=== PATIENT | female | born 1950 | race Caucasian/White ===

== ENCOUNTER 2019-06-30 11:56 | Outpatient (CLI) | payer MEDICARE, SELFPAY ==
--- NOTE | ~2019-06-30 | XR_ITS ---
XR lumbar spine 6V w bending 06/30/2019 12:31 Indication: Low back pain. No recent trauma. Procedure: 7 views of the lumbar spine including flexion/extension views Comparison: 02/13/2013 Findings: There is mild lumbar facet hypertrophy at L3-4 through L5-S1. There is grade 1 degenerative spondylolisthesis at L3-4. There is disc narrowing at all lumbar levels, most advanced at L4-5 and L 5-S1. No acute fracture or traumatic malalignment. There is atherosclerosis of the aorta. No signific ant alteration of alignment with flexion/extension. Mild levocurvature of the lumbar spine. Pedicles intact. There are cholecystectomy clips. Sacral foramen are symmetric. Impression: 1: Mild-moderate lumbar spondylosis with grade 1 degenerative spondylolisthesis at L3-4. Reviewed, dictated and finalized at location A. CIATE PROFESSOR OF MEDICINE Impression: 1: Mild-moderate lumbar spondylosis with grade 1 degenerative spondylolisthesis at L3-4.
--- NOTE | ~2019-06-30 | XR_ITS ---
XR sacroiliac joints min 3V 06/30/2019 12:31 Indication: Low back pain Procedure: 3 view sacroiliac joints Comparison: No prior studies for comparison. Findings: There are mild symmetric degenerative changes of the sacroiliac joints. No erosive changes. No evidence for ankylosis. Moderate lower lumbar spondylosis. Sacral foramen are symmetric. Impression: 1: Mild symmetric degenerative changes of the sacroiliac joints. Reviewed, dictated and finalized at location A. NEERING ILLUSTRATOR Impression: 1: Mild symmetric degenerative changes of the sacroiliac joints.
== END 2019-06-30 11:57 | disposition home or self-care (01) ==
LOC: ANHIMG 12:08
PROVIDERS: PCP Internal Medicine; Visit Provider Internal Medicine
DX: M47.816 Spondylosis without myelopathy or radiculopathy, lumbar region (principal); M47.818 Spondylosis without myelopathy or radiculopathy, sacral and sacrococcygeal region; M43.16 Spondylolisthesis, lumbar region; I11.9 Hypertensive heart disease without heart failure
CPT/HCPCS: 72114; 72202

== ENCOUNTER 2019-07-09 13:57 | Outpatient (CLI) | payer MEDICARE, SELFPAY ==
[2019-07-09 14:53] LABS: Hemoglobin A1C 5.5 % (<5.7)
[2019-07-09 14:57] LABS: Aspartate Amino Transferase 26 U/L (14-36); Blood Urea Nitrogen 15 mg/dL (7-17); Calcium 9.1 mg/dL (8.4-10.2); Carbon Dioxide 30 mmol/L (22-30); Chloride 102 mmol/L (98-107); Cholesterol 209 mg/dL (0-200); Estimated Glomerular Filt Rate > 60; Glucose 100 mg/dL (65-105); HDL Direct 47 mg/dL; Potassium 4.6 mmol/L (3.4-5.0); Sodium 139 mmol/L (137-145); Triglycerides 95 mg/dL (<150); Uric Acid 4.1 mg/dL (2.5-7.5)
[2019-07-09 15:09] LABS: LDL Cholesterol Direct 136 mg/dL
[2019-07-09 15:59] LABS: Free T4 Free Thyroxine 0.98 ng/mL (0.78-2.19); Vitamin D 25 Hydroxy 31.8 ng/mL
[2019-07-09 16:06] LABS: Folic Acid > 20.0 ng/mL (2.76->20)
== END 2019-07-09 13:58 | disposition home or self-care (01) ==
PROVIDERS: PCP Internal Medicine; Visit Provider Internal Medicine
DX: I11.9 Hypertensive heart disease without heart failure (principal); E55.9 Vitamin D deficiency, unspecified; R73.09 Other abnormal glucose; R53.83 Other fatigue
CPT/HCPCS: 36415; 80048; 80061; 82306; 82607; 82746; 83036; 84439; 84443; 84450; 84550

== ENCOUNTER 2019-09-19 15:31 | Outpatient (CLI) | payer MEDICARE, SELFPAY ==
--- NOTE | ~2019-09-19 | XR_ITS ---
XR knee RT 3V, XR patella RT 09/19/2019 16:01 Indication: Knee pain after fall Procedure: 3 views of the right knee and 2 views of the patella Comparison: No prior studies for comparison. Findings: No fracture, subluxation or dislocation. No significant joint effusion. No joint space narr owing. No focal soft tissue abnormality. No foreign bodies. Impression: 1: No acute bone or joint abnormality. Reviewed, dictated and finalized at location A. Impression: 1: No acute bone or joint abnormality. Impression: 1: No acute bone or joint abnormality.
== END 2019-09-19 15:32 | disposition home or self-care (01) ==
PROVIDERS: PCP Internal Medicine; Visit Provider Internal Medicine
DX: M25.569 Pain in unspecified knee (principal)
CPT/HCPCS: 73560; 73562

== ENCOUNTER 2019-10-19 11:05 | Outpatient (CLI) | payer MEDICARE, SELFPAY ==
--- NOTE | ~2019-10-19 | MR_ITS ---
EXAMINATION: MR knee RT wo con DATE: 10/19/2019 12:43 INDICATION: Generalized right knee pain post fall TECHNIQUE: Magnetic resonance imaging (MRI) of the right knee was performed without intravenous contr ast. Sequences included coronal PD-weighted FSE, coronal PD-weighted FS FSE, sagittal T2-weighted FS E, sagittal PD-weighted FS FSE and axial PD weighted fat saturated FSE. COMPARISON: None. FINDINGS: Medial compartment: Complex tear of the medial meniscus with radial tear plane extending through the free edge to the mid third of the posterior horn and with a horizontal longitudinal tear plane contacting the inferior ar ticular surface which extends medially into the posterior body of the medial meniscus. Shallow chondr al fissuring at the central aspect of the medial tibial plateau. Lateral compartment: Lateral meniscus is normal. Shallow chondral fissuring at the central aspect of the lateral tibial pl ateau. Patellofemoral compartment: Chondral fissure involving approximately 50% the cartilage thickness at the skull ridge and immediate ly adjacent portions of the medial and lateral patellar facets. Trochlear cartilage is normal. Ligaments and tendons: Anterior and posterior cruciate ligaments are normal. The medial collateral ligament and fibular leigha ateral ligament complex are normal. The extensor mechanism is normal. The visualized medial and later al hamstring tendons as well as the iliotibial band are normal. Fluid: Small right knee joint effusion at the suprapatellar pouch. No loose osteochondral bodies identified. Osseous/other: There is prominent marrow edema at the anterior aspect of the proximal tibia without evident fracture line consistent with bone contusion. No fracture or pathologic marrow replacing process. IMPRESSION: 1. Bone marrow edema at the anterior tibia without evident fracture line consistent with likely bone contusion. 2. Complex tear of the medial meniscus. 3. Mild tricompartmental osteoarthritis with regions of moderate grade chondromalacia at the patella and medial and lateral tibial plateaus. Reviewed, dictated and finalized at location A. IMPRESSION: 1. Bone marrow edema at the anterior tibia without evident fracture line consis tent with likely bone contusion. 2. Complex tear of the medial meniscus. 3. Mild tricompartmental osteoarthritis with regions of moderate grade chondrom alacia at the patella and medial and lateral tibial plateaus.
== END 2019-10-19 11:06 | disposition home or self-care (01) ==
LOC: ANHIMG 11:09
PROVIDERS: PCP Internal Medicine; Visit Provider Internal Medicine
DX: S83.231A Complex tear of medial meniscus, current injury, right knee, initial encounter (principal); X58.XXXA Exposure to other specified factors, initial encounter; M17.11 Unilateral primary osteoarthritis, right knee
CPT/HCPCS: 73721

== ENCOUNTER → 2020-11-14 07:00 | Outpatient (CLI) | payer MEDICARE, SELFPAY ==
[2020-11-14 17:52] LABS: SARS-CoV-2 RNA PCR Positive
== END ==
PROVIDERS: PCP Internal Medicine; Visit Provider Internal Medicine
DX: U07.1 COVID-19 (principal)
CPT/HCPCS: C9803; U0003; U0005

== ENCOUNTER 2020-12-10 11:18 | Outpatient (CLI) | payer MEDICARE, SELFPAY ==
--- NOTE | ~2020-12-10 | XR_ITS ---
EXAMINATION: XR chest 2V 12/10/2020 11:44 INDICATION: Shortness of breath and cough PROCEDURE: 2 view chest COMPARISON: Comparison to multiple prior studies sequentially, with oldest reviewed study dated 09/18. FINDINGS: The lungs are clear. The cardiomediastinal silhouette is within normal limits. There are no pleural effusions. There is no pneumothorax suspected. IMPRESSION: 1: NO ACUTE CARDIOPULMONARY DISEASE. Reviewed, dictated and finalized at location A.
== END 2020-12-10 11:19 | disposition home or self-care (01) ==
PROVIDERS: PCP Internal Medicine; Visit Provider Internal Medicine
DX: R06.02 Shortness of breath (principal)
CPT/HCPCS: 71046

== ENCOUNTER → 2020-12-23 02:40 | Outpatient (CLI) | payer MEDICARE, SELFPAY ==
[2020-12-24 15:30] LABS: SARS-CoV-2 RNA PCR Negative
== END ==
PROVIDERS: PCP Internal Medicine; Visit Provider Internal Medicine
DX: R68.89 Other general symptoms and signs (principal); Z20.822 Contact with and (suspected) exposure to COVID-19
CPT/HCPCS: C9803; U0003; U0005

== ENCOUNTER 2021-06-13 12:17 | Emergency (ER) | payer MEDICARE, SELFPAY ==
--- NOTE | ~2021-06-13 | XR_ITS ---
EXAMINATION: XR shoulder RT min 2V DATE: 06/13/2021 13:02 INDICATION: Right shoulder pain, swelling and bruising post fall TECHNIQUE: AP internally and externally rotated, AP oblique externally rotated and transscapular Y vi ews of the right shoulder were obtained. COMPARISON: None FINDINGS: Normal alignment. No fracture.Mild glenohumeral osteoarthritis with mild cephalad predominant nonuni form joint space narrowing. Minimal acromioclavicular osteoarthritis. Soft tissues are unremarkable. Right lung is clear with no pleural effusion or pneumothorax. IMPRESSION: Minimal to mild osteoarthritis at the right shoulder. No acute osseous abnormality. Reviewed, dictated and finalized at location A. MOTIVE GENERAL MANAGER IMPRESSION: Minimal to mild osteoarthritis at the right shoulder. No acute osseous abnormal ity.
--- NOTE | ~2021-06-13 | CT_ITS ---
EXAMINATION: CT cervical spine wo con DATE: 06/13/2021 13:16 INDICATION: Neck pain post fall TECHNIQUE: Computed tomography (CT) of the cervical spine was performed without intravenous contrast. Automated exposure control and iterative reconstruction technique were employed. The dose-length pro duct was 193.84 mGy-cm. COMPARISON: None FINDINGS: Alignment is normal. Vertebral body heights are normal. No fracture. Severe disc height loss with sev ere uncovertebral osteoarthritis at C4-C5, C5-C6, C7-T1 and T2-T3. Moderate disc height loss at C3-C4 , C6-C7 and mild disc height loss at C2-C3 and T1-T2. Severe facet osteoarthritis on the left at C3-C 4 and C4-C5. Mild to moderate facet osteoarthritis at the remaining cervical facet joints. Multilevel disc bulges and small disc osteophyte complexes resulting in mild central canal stenosis at the lev el of the disc spaces throughout the cervical spine. Atherosclerotic coronary artery calcification is at the bilateral carotid bulbs. Multinodular goiter with largest nodule measuring 1.7 cm in the righ t thyroid lobe. Mild emphysema at the apices of the lungs. IMPRESSION: 1. Severe cervical spondylosis. No acute osseous abnormality. 2. Mild emphysema. 3. 1.7 cm right thyroid nodule. Recommend thyroid ultrasound for risk stratification. Reviewed, dictated and finalized at location A. DENTIAL COLLECTIONS IMPRESSION: 1. Severe cervical spondylosis. No acute osseous abnormality. 2. Mild emphysema. 3. 1.7 cm right thyroid nodule. Recommend thyroid ultrasound for risk stratific ation.
--- NOTE | ~2021-06-13 | CT_ITS ---
EXAMINATION: CT brain wo con DATE: 06/13/2021 13:15 INDICATION: Anticoagulated patient with head injury post fall TECHNIQUE: Computed tomography (CT) of the head was performed without intravenous contrast. Sagittal and coronal reconstructions were performed. The mA was adjusted according to patient size. Iterative reconstruction technique was employed. The dose-length product was 605.33 mGy-cm. COMPARISON: head CT dated 02/12/2013 FINDINGS: No calvarial fracture. There is a metal implant in the calvarium along the left lambdoid suture. No a cute intracranial hemorrhage, acute infarction or abnormal extra axial fluid collection. Ventricles a re normal and symmetric. No mass/mass effect. Changes of bilateral intraocular lens replacement. The orbits, paranasal sinuses and right mastoid air cells are normal. Status post left mastoidectomy. Par tial opacification of the left middle ear cavity with absent ossicular chain. IMPRESSION: 1. No fracture or acute intracranial process. Reviewed, dictated and finalized at location A. NSING COURT MAGISTRATE
[2021-06-13 12:23] VITALS: BP 157/69; PULSE 62; RESP 16; TEMP 36.6; O2SAT 100
--- NOTE | 2021-06-13 14:08 | ED.FALL ---
HPI - Fall General Chief Complaint: Fall Stated Complaint: fall Time Seen by Provider: 06/13/21 12:33 Source: patient History of Present Illness HPI Narrative: Patient presents after a fall. Patient ports she was walking down her steps outside when she slipped on the step struck her right shoulder and head on the concrete. She went to her sister's birthday monitor her symptoms. She had increased soreness today so she came to the ER for evaluation. Her pain is primarily on her right neck and shoulder. Her pain is achy, constant, no radiation, worse with moving her neck or shoulder. She denies any focal numbness or weakness she denied any loss of consciousness denies any nausea or vomiting. Reports she is on blood thinners. Related Data Home Medications Medication Instructions Recorded Confirmed lorazepam 0.5 mg tablet 0.5 mg PO DAILY PRN 07/31/19 02/10/21 valacyclovir 500 mg tablet 500 mg PO DAILY PRN 07/31/19 02/10/21 selenium 200 mcg capsule 200 mcg PO DAILY 05/06/20 02/10/21 tramadol 50 mg tablet 50 mg PO Q6H PRN 05/06/20 02/10/21 Allergies Allergy/AdvReac Type Severity Reaction Status Date / Time ciprofloxacin Allergy Severe SWELLING Verified 02/10/21 14:24 AND HIVES enoxaparin Allergy Severe POSSIBLE Verified 02/10/21 14:24 ALLERGY- RASH ON TRUNK Quinolones Allergy Severe OUT OF Verified 02/10/21 14:24 BODY EXPERIENCE Sulfa (Sulfonamide Allergy Severe Swelling Verified 02/10/21 14:24 Antibiotics) latex Allergy Intermediate rash Verified 02/10/21 14:24 levofloxacin Allergy Mild SWELLING/RA Verified 02/10/21 14:24 SH codeine AdvReac Severe OUT OF Verified 02/10/21 14:24 BODY EXPERIENCE CIPROFLOXACIN HCL Allergy Severe SWELLING Uncoded 02/10/21 14:24 AND HIVES POSSIBLE ALLERGY TO LOVENOX Allergy Severe RASH ON Uncoded 02/10/21 14:24 OR CCK, RASH AFTER BOTH TRUNK RECEIVED NALBUPHINE HCL AdvReac Intermediate Nausea and Uncoded 02/10/21 14:24 Vomiting Review of Systems Review of Systems: CONSTITUTIONAL: Denies fever, chills, or sweats. EYES: Denies visual changes, redness, or discharge. ENT: Denies rhinorrhea, congestion, sore throat, or otalgia. CARDIOVASCULAR: Denies chest pain, palpitations, or edema. RESPIRATORY: Denies cough or dyspnea. GASTROINTESTINAL: Denies abdominal pain, nausea, vomiting, or diarrhea. GENITOURINARY: Denies dysuria or hematuria. SKIN: Denies rash or itching. MUSCULOSKELETAL: Denies back pain, or myalgia. NEUROLOGIC: Denies headache, numbness, dizziness, or weakness. PSYCHIATRIC: Denies anxiety or depression. All systems reviewed & are unremarkable except as noted in HPI and below PMFSH Past Medical History Medical History Adult attention deficit disorder Chronic low back pain Chronic rhinitis Complex tear of medial meniscus of right knee Hypertensive heart disease Surgical History Surgical History S/P arthroscopic knee surgery c/o Dr. Sawant at [facility] on 2020 Family History Family History Mother Cerebrovascular accident Family history of coronary artery disease Grandparent Cerebrovascular accident Family history of coronary artery disease Father Family history of malignant neoplasm Other Family history of malignant neoplasm of cervix Social History Social History Smoking packs per day: 2 Smoking cigarettes per day: 40.0 Years smoked: 18 Smoking pack-years: 36.00 Smoking status: Former smoker Tobacco type: cigarettes Second hand tobacco smoke exposure: No Smoking end date: 09/23/94 Alcohol intake: current Alcohol use details: social Substance use: former Substance use type: marijuana Exam Narrative: GENERAL: Well-appearing, well-nour
== END 2021-06-13 14:30 | disposition home or self-care (01) ==
PROVIDERS: Emergency Provider Emergency Medicine; PCP Internal Medicine
DX: S09.90XA Unspecified injury of head, initial encounter (principal); S16.1XXA Strain of muscle, fascia and tendon at neck level, initial encounter; I11.9 Hypertensive heart disease without heart failure; J43.9 Emphysema, unspecified; M47.812 Spondylosis without myelopathy or radiculopathy, cervical region; E04.1 Nontoxic single thyroid nodule; F90.9 Attention-deficit hyperactivity disorder, unspecified type; M19.011 Primary osteoarthritis, right shoulder; Z87.891 Personal history of nicotine dependence; Z79.01 Long term (current) use of anticoagulants
CPT/HCPCS: 70450; 72125; 73030; 99284

== ENCOUNTER 2021-07-02 16:17 | Outpatient (CLI) | payer MEDICARE, SELFPAY ==
--- NOTE | ~2021-07-02 | US_ITS ---
EXAMINATION: US thyroid EXAM DATE: 07/02/2021 16:56 INDICATION: E04.1 - Nontoxic single thyroid nodule. TECHNIQUE: Multiple grayscale and Doppler images of the thyroid were obtained (by a technologist who performed the scan) and subsequently reviewed. Individual nodules and recommendations may be reporte d in accordance with TI-RADS system as designated by the 2017 ACR White Paper TI-RADS committee. Timur elation is made to CT cervical spine 06/13/2021. FINDINGS: The right thyroid lobe measures 4.3 x 1.9 x 1.5 cm, the left measuring 3.7 x 1.3 x 1.4 cm. Mildly dif fusely heterogeneous thyroid echogenicity. There are scattered thyroid nodules. Right thyroid lobe nodule measuring 1.4 x 1.3 x 1.2 cm, solid (2 points), hypoechoic (2 points), wide r than tall, smooth well defined margin, without echogenic foci, category TR4 for this nodule. This category nodule recommended for biopsy if reaches 1.5 cm. Other nodules are subcentimeter in size. IMPRESSION: Scattered thyroid nodules; recommend one-year follow-up for largest right thyroid lobe no dule. Reviewed, dictated and finalized at location A. ER APPRENTICE ARC IMPRESSION: Scattered thyroid nodules; recommend one-year follow-up for largest right thyroid lobe nodule.
== END 2021-07-02 16:18 | disposition home or self-care (01) ==
LOC: ANHIMG 16:22
PROVIDERS: PCP Internal Medicine; Visit Provider Internal Medicine
DX: E04.2 Nontoxic multinodular goiter (principal)
CPT/HCPCS: 76536

== ENCOUNTER 2021-07-19 01:17 | Emergency (ER) | payer MEDICARE, SELFPAY ==
--- NOTE | ~2021-07-19 | CT_ITS ---
EXAMINATION: CT brain wo con DATE: 07/19/2021 02:16 INDICATION: Fall with head injury. Anticoagulated. TECHNIQUE: Computed tomography (CT) of the head was performed without intravenous contrast. Sagittal and coronal reconstructions were performed. The mA was adjusted according to patient size. Iterative reconstruction technique was employed. The dose-length product was 605.33 mGy-cm. COMPARISON: head CT dated 06/13/2021 FINDINGS: No calvarial fracture. No acute intracranial hemorrhage, acute infarction or abnormal extra axial flu id collection. Ventricles are normal and symmetric. No mass/mass effect. Mild mucosal thickening the bilateral ethmoid sinuses. Tiny amount of dependently layering fluid in the bilateral sphenoid sinuse s. Soft tissue swelling at the bridge of the nose. Changes of right intraocular lens replacement. The orbits are otherwise normal. Status post left mastoidectomy. IMPRESSION: 1. No calvarial fracture or acute intracranial process. Reviewed, dictated and finalized at location A.
--- NOTE | ~2021-07-19 | CT_ITS ---
EXAMINATION: 1. CT facial & cervical spine wo DATE: 07/19/2021 02:17 INDICATION: Fall with facial injury TECHNIQUE: 1. Computed tomography (CT) of the maxillofacial region and of the cervical spine were performed with out intravenous contrast. Sagittal and coronal reconstructions of both regions were obtained. Automat ed exposure control and iterative reconstruction technique were employed. The dose-length product was 207.90 mGy-cm. COMPARISON: None. FINDINGS: Maxillofacial CT: Bilateral nasal bone fractures with the anterior fragments of the bilateral nasal bones shifted appro ximately 1 mm to the right. Unchanged rightward bowing of the nasal septum without evident acute frac ture. No other maxillofacial fractures identified. Specifically the mendoza of the orbits and paranasal sinuses, the zygomatic arches, mandible and pterygoid plates are all intact. Normal alignment at the temporomandibular joints. Mild mucosal thickening the bilateral ethmoid sinuses and trace amount of posterior layering fluid in the bilateral maxillary sinuses. Bubbly mucus in the nasopharynx. Multipl e absent teeth primarily along the mandible and right maxilla. Multiple dental caries along the right maxilla. Soft tissue swelling at the bridge of the nose. Small amount of atherosclerotic calcific le levar at the bilateral carotid bulbs. Cervical spine CT: Slight reversal of the normal cervical lordosis which could be positional or due to muscle spasm. Patric tebral body heights are normal. No fracture. Severe disc height loss at C4-C5, C5-C6 and C7-T1, moder ate disc height loss at C3-C4, C6-C7 and T2-T3 and mild disc height loss at C2-C3 and T1-T2. There is are degenerative endplate changes along with moderate to severe uncovertebral osteoarthritis at many levels in the cervical spine. Disc bulges and posterior disc osteophyte complexes contributing to mi ld central canal stenosis from C3-C4 through C7-T1. Bilateral multilevel cervical facet osteoarthriti s, severe on the left at C3-C4 and otherwise mild to moderate. The facet and uncovertebral osteoarthr itis contributes to mild neural foraminal stenosis at several levels on both the left and right. Mini mal emphysema at the bilateral apices. IMPRESSION: 1. Bilateral nasal bone fractures with anterior fragments displaced 1 mm to the right. 2. Severe cervical spondylosis with no acute osseous abnormality. 3. A couple dental caries along the right maxilla. Reviewed, dictated and finalized at location A.
--- NOTE | 2021-07-19 01:33 | ED.GENADULT ---
HPI - General Adult General Chief complaint: Fall Stated complaint: GLF - ETOH with nose lac Time Seen by Provider: 07/19/21 01:19 History of Present Illness HPI narrative: Patient is a 71-year-old female who presents ER status post fall. Patient reports she had been drinking vodka and orange juice throughout the evening. She was in her for your when she turned around falling straight onto her face. She did not lose consciousness. She does have a bloody nose and a laceration over the bridge of her nose. She reports that she takes Plavix. She is in a c-collar. She denies any other injury or area of pain. She does feel like her nose is congested. Related Data Home Medications Medication Instructions Recorded Confirmed lorazepam 0.5 mg tablet 0.5 mg PO DAILY PRN 07/31/19 02/10/21 valacyclovir 500 mg tablet 500 mg PO DAILY PRN 07/31/19 02/10/21 selenium 200 mcg capsule 200 mcg PO DAILY 05/06/20 02/10/21 tramadol 50 mg tablet 50 mg PO Q6H PRN 05/06/20 02/10/21 clopidogrel 75 mg tablet 75 mg PO DAILY 06/19/21 Allergies Allergy/AdvReac Type Severity Reaction Status Date / Time ciprofloxacin Allergy Severe SWELLING Verified 06/19/21 14:00 AND HIVES enoxaparin Allergy Severe POSSIBLE Verified 06/19/21 14:00 ALLERGY- RASH ON TRUNK Quinolones Allergy Severe OUT OF Verified 06/19/21 14:00 BODY EXPERIENCE Sulfa (Sulfonamide Allergy Severe Swelling Verified 06/19/21 14:00 Antibiotics) latex Allergy Intermediate rash Verified 06/19/21 14:00 levofloxacin Allergy Mild SWELLING/RA Verified 06/19/21 14:00 SH codeine AdvReac Severe OUT OF Verified 06/19/21 14:00 BODY EXPERIENCE CIPROFLOXACIN HCL Allergy Severe SWELLING Uncoded 06/19/21 14:00 AND HIVES POSSIBLE ALLERGY TO LOVENOX Allergy Severe RASH ON Uncoded 06/19/21 14:00 OR CCK, RASH AFTER BOTH TRUNK RECEIVED NALBUPHINE HCL AdvReac Intermediate Nausea and Uncoded 06/19/21 14:00 Vomiting Review of Systems Review of Systems: All systems reviewed & are unremarkable except as noted in HPI and below Constitutional: Constitutional: Denies chills, Denies fever(s) and Denies weakness ENT: Reports epistaxis, Reports nasal congestion and Denies sore throat Comments: Nasal pain with laceration Cardiovascular: Cardiovascular: Denies chest pain, Denies rapid heart rate and Denies radiating jaw, neck or arm pain Respiratory: Respiratory: Denies cough, Denies dyspnea and Denies wheezing Gastrointestinal: Gastrointestinal: Denies abdominal pain, Denies nausea and Denies vomiting Neurologic: Denies dizziness, Denies syncope, Denies headache(s), Denies focal weakness and Denies numbness PMFSH Past Medical History Medical History Adult attention deficit disorder Chronic low back pain Chronic rhinitis Complex tear of medial meniscus of right knee Hypertensive heart disease Surgical History Surgical History S/P arthroscopic knee surgery c/o Dr. Sawant at [facility] on 2020 Family History Family History Mother Cerebrovascular accident Family history of coronary artery disease Grandparent Cerebrovascular accident Family history of coronary artery disease Father Family history of malignant neoplasm Other Family history of malignant neoplasm of cervix Social History Social History Smoking packs per day: 2 Smoking cigarettes per day: 40.0 Years smoked: 18 Smoking pack-years: 36.00 Smoking status: Former smoker Tobacco type: cigarettes Second hand tobacco smoke exposure: No Smoking end date: 09/23/94 Alcohol intake: current Alcohol use details: social Substance use: former Substance use type: marijuana Exam Narrative: GENERAL: Well-appe
[2021-07-19 01:39] VITALS: BP 167/94; PULSE 97; RESP 16; TEMP 37.1; O2SAT 98
[2021-07-19 02:25] VITALS: BP 165/95; PULSE 95; RESP 16; O2SAT 96
[2021-07-19] MEDS: LIDOCAINE, EPINEPHRINE, TETRACAINE VISCOUS SOLN 3 ML TOPICAL (02:59)
[2021-07-19 05:25] VITALS: BP 168/92; PULSE 101; RESP 16; O2SAT 99
== END 2021-07-19 05:27 | disposition home or self-care (01) ==
PROVIDERS: Emergency Provider Emergency Medicine; PCP Internal Medicine
DX: S02.2XXB Fracture of nasal bones, initial encounter for open fracture (principal); I11.9 Hypertensive heart disease without heart failure; F98.8 Other specified behavioral and emotional disorders with onset usually occurring in childhood and adolescence; Z79.02 Long term (current) use of antithrombotics/antiplatelets; Z87.891 Personal history of nicotine dependence; W01.0XXA Fall on same level from slipping, tripping and stumbling without subsequent striking against object, initial encounter
CPT/HCPCS: 12011; 70450; 70486; 72125; 96365; 99284; J0690

== ENCOUNTER 2021-11-15 23:16 | Emergency (ER) | payer MEDICARE, SELFPAY ==
[2021-11-15 23:30] VITALS: BP 182/87; PULSE 76; RESP 16; TEMP 36.1; O2SAT 99
--- NOTE | 2021-11-15 23:50 | ED.DENTAL ---
HPI - Dental/Oral General Chief complaint: Dental/Oral Stated complaint: dental pain Time Seen by Provider: 11/15/21 23:33 History of Present Illness HPI Narrative: 71-year-old female presents to the emergency room for evaluation of dental pain. States pain has been present for approximately 4 weeks. Pain began when she broke off part of her tooth. Patient has a dental appointment next week. Related Data Home Medications Medication Instructions Recorded Confirmed lorazepam 0.5 mg tablet 0.5 mg PO DAILY PRN 07/31/19 07/23/21 valacyclovir 500 mg tablet 500 mg PO DAILY PRN rash 07/31/19 07/23/21 selenium 200 mcg capsule 200 mcg PO DAILY 05/06/20 07/23/21 aspirin 81 mg chewable tablet 81 mg PO DAILY 07/23/21 07/23/21 diclofenac sodium 1 % topical gel 2 g topical QID 07/23/21 07/23/21 (Arthritis Pain (diclofenac)) lactobacillus combination no.4 3 3,000 mmu cells PO DAILY 07/23/21 07/23/21 billion cell capsule mometasone 0.1 % topical cream 1 applic topical BID PRN 07/23/21 07/23/21 ofloxacin 0.3 % ear drops 10 drp EACH EAR DAILY PRN 07/23/21 07/23/21 Allergies Allergy/AdvReac Type Severity Reaction Status Date / Time ciprofloxacin Allergy Severe SWELLING Verified 11/15/21 23:42 AND HIVES enoxaparin Allergy Severe POSSIBLE Verified 11/15/21 23:42 ALLERGY- RASH ON TRUNK Quinolones Allergy Severe OUT OF Verified 11/15/21 23:42 BODY EXPERIENCE Sulfa (Sulfonamide Allergy Severe Swelling Verified 11/15/21 23:42 Antibiotics) latex Allergy Intermediate rash Verified 11/15/21 23:42 levofloxacin Allergy Mild SWELLING/RA Verified 11/15/21 23:42 SH codeine AdvReac Severe OUT OF Verified 11/15/21 23:42 BODY EXPERIENCE CIPROFLOXACIN HCL Allergy Severe SWELLING Uncoded 07/23/21 08:13 AND HIVES POSSIBLE ALLERGY TO LOVENOX Allergy Severe RASH ON Uncoded 07/23/21 08:13 OR CCK, RASH AFTER BOTH TRUNK RECEIVED NALBUPHINE HCL AdvReac Intermediate Nausea and Uncoded 07/23/21 08:13 Vomiting Review of Systems Review of Systems: CONSTITUTIONAL: Denies fever, chills, or sweats. EYES: Denies visual changes, redness, or discharge. ENT: Reports dental pain CARDIOVASCULAR: Denies chest pain, palpitations, or edema. RESPIRATORY: Denies cough or dyspnea. GASTROINTESTINAL: Denies abdominal pain, nausea, vomiting, or diarrhea. GENITOURINARY: Denies dysuria or hematuria. SKIN: Denies rash or itching. MUSCULOSKELETAL: Denies back pain, joint pain, or myalgia. NEUROLOGIC: Denies headache, numbness, dizziness, or weakness. PSYCHIATRIC: Denies anxiety or depression. [facility] Past Medical History Medical History Adult attention deficit disorder Broken nose Chronic low back pain Chronic rhinitis Complex tear of medial meniscus of right knee Hypertensive heart disease Surgical History Surgical History S/P arthroscopic knee surgery c/o Dr. Sawant at [facility] on 2020 Family History Family History Mother Cerebrovascular accident Family history of coronary artery disease Grandparent Cerebrovascular accident Family history of coronary artery disease Father Family history of malignant neoplasm Other Family history of malignant neoplasm of cervix Social History Social History Smoking packs per day: 2 Smoking cigarettes per day: 40.0 Years smoked: 18 Smoking pack-years: 36.00 Smoking status: Former smoker Tobacco type: cigarettes Second hand tobacco smoke exposure: No Smoking end date: 09/23/94 Alcohol intake: current Alcohol use details: social Substance use: former Substance use type: marijuana Exam Narrative: GENERAL: Well-appearing, well-nourished, no physical limitations, and in no acute distress. HEAD: N
[2021-11-16] MEDS: AMOXICILLIN/CLAVULANATE K 875-125 MG TAB 1 TABLET PO (00:17)
== END 2021-11-16 00:21 | disposition home or self-care (01) ==
LOC: ANHED 23:57
PROVIDERS: Emergency Provider Nurse Practitioner Family; PCP Internal Medicine
DX: K08.89 Other specified disorders of teeth and supporting structures (principal); I11.9 Hypertensive heart disease without heart failure; F98.8 Other specified behavioral and emotional disorders with onset usually occurring in childhood and adolescence; M54.50 Low back pain, unspecified; G89.29 Other chronic pain; Z79.82 Long term (current) use of aspirin; Z87.891 Personal history of nicotine dependence
CPT/HCPCS: 99283; A9270

== ENCOUNTER 2022-07-23 12:16 | Outpatient (CLI) | payer MEDICARE, SELFPAY ==
--- NOTE | ~2022-07-23 | XR_ITS ---
Right Shoulder Technique: AP and scapular Y views were obtained. Clinical History: Pain Findings: No fracture or dislocation is seen. Osseous alignment is anatomic. The glenohumeral and acr omioclavicular joint spaces are preserved. Soft tissues are unremarkable. Impression: Unremarkable right shoulder radiographs. Reviewed, dictated and finalized at [facility]. Impression: Unremarkable right shoulder radiographs.
--- NOTE | ~2022-07-23 | XR_ITS ---
AP and lateral views of the neck CLINICAL HISTORY: Enlarged lymph nodes FINDINGS: There is advanced degenerative disc narrowing at C4-C5, C5-C6, and C6-C7. No prevertebral s oft tissue swelling. Epiglottis unremarkable. Visualized aerodigestive tract unremarkable. No soft ti ssue abnormality evident. IMPRESSION: No abnormal soft tissue findings. Degenerative change of the cervical spine, as above. Reviewed, dictated and finalized at location .
--- NOTE | ~2022-07-23 | XR_ITS ---
XR cervical spine 4-5V DATE: 07/23/2022 12:51 INDICATION: Neck pain following a fall one year ago TECHNIQUE: AP, open-mouth, lateral, swimmer views COMPARISON: 07/19/2021 CT cervical spine FINDINGS: There is straightening of the cervical spine which may be due to muscle spasm. C1 and C2 are normally aligned and the odontoid process is intact. Moderately prominent degenerative disc disease at C3-4. Moderately severe degenerative disc disease and minimal retrolisthesis at C4-5. Severe degenerative disc disease at C5-6. Moderately severe degenerative disc disease and minimal anterolisthesis at C6-7. Severe degenerative disc disease and mild anterolisthesis at C7-T1. No fracture or dislocation or locked facet or prevertebral soft tissue swelling. IMPRESSION: Straightening of the cervical spine which may be due to muscle spasm Severe cervical spondylosis Reviewed, dictated and finalized at location B. IMPRESSION: Straightening of the cervical spine which may be due to muscle spas m Severe cervical spondylosis
== END 2022-07-23 12:17 | disposition home or self-care (01) ==
PROVIDERS: PCP Nurse Practitioner Family; Visit Provider Nurse Practitioner Family
DX: R59.1 Generalized enlarged lymph nodes (principal); M25.511 Pain in right shoulder; M47.892 Other spondylosis, cervical region
CPT/HCPCS: 70360; 72050; 73030

== ENCOUNTER 2022-07-31 12:32 | Outpatient (CLI) | payer MEDICARE, SELFPAY ==
--- NOTE | ~2022-07-31 | MR_ITS ---
MRI of the right shoulder Technique: Axial proton-density fat-sat images, coronal proton density fat-sat and T2 fat-sat images, and sagittal T1-weighted and T2 fat-sat images were acquired. Clinical History: Pain Findings: There is moderate degenerative change at the AC joint. Coracoclavicular, coracoacromial, an d coracohumeral ligaments are intact. There is focal severe tendinosis of the distal supraspinatus tendon at its central portion, with poss ible partial thickness tearing in this region. Infraspinatus tendon is intact, without partial or ful l-thickness tear. Subscapularis tendon is intact with minimal tendinosis. Tendon of the long head of the biceps is intact. No definite labral tear seen. Probable sublabral foramen noted at the anterosuperior aspect. Inferior glenohumeral ligament is intact. No degenerative change or effusion of the glenohumeral join t. No significant fluid distention of the subacromial/subdeltoid bursa. No muscle atrophy or edema. Impression: Focal severe tendinosis of the distal supraspinatus tendon with questionable superimposed partial thi ckness tearing. MR arthrogram could be considered for further evaluation as indicated. Moderate AC joint degenerative change. Reviewed, dictated and finalized at location . Impression: Focal severe tendinosis of the distal supraspinatus tendon with questionable marin perimposed partial thickness tearing. MR arthrogram could be considered for fur ther evaluation as indicated. Moderate AC joint degenerative change.
== END 2022-07-31 12:33 | disposition home or self-care (01) ==
PROVIDERS: PCP Nurse Practitioner Family; Visit Provider Nurse Practitioner Family
DX: M19.011 Primary osteoarthritis, right shoulder (principal)
CPT/HCPCS: 73221

== ENCOUNTER 2022-08-12 12:32 | Outpatient (CLI) | payer MEDICARE, SELFPAY ==
--- NOTE | ~2022-08-12 | XR_ITS ---
XR lumbar spine min 4V DATE: 08/12/2022 13:08 INDICATION: Low back pain TECHNIQUE: AP, lateral, bilateral oblique views, coned lateral lumbosacral view COMPARISON: 06/30/2019 lumbar spine FINDINGS: There is diffuse osteopenia. Mild levoscoliosis of the lumbar spine. There is mild degenerative disc disease at L2-3 and L3-4. There is grade 1 anterolisthesis at L3-4, due to degenerative change at the apophyseal joints. No spo ndylolysis is detected. There is severe degenerative disc disease at L4-5 and L5-S1. No fracture or bone destruction of the lumbar spine. The lumbar pedicles are intact. The sacroiliac joints are intact. There is extensive calcification of the abdominal aorta with suggestion of an infrarenal abdominal ao rtic aneurysm. There is calcification of the iliac arteries. Status post cholecystectomy. IMPRESSION: Osteopenia Mild levoscoliosis Multilevel degenerative disc disease, most severe at L4-5 and L5-S1 Degenerative changes apophyseal joints with grade 1 anterolisthesis at L3-4 Mild infrarenal abdominal aortic aneurysm is suggested Reviewed, dictated and finalized at location L.
--- NOTE | ~2022-08-12 | XR_ITS ---
XR hip LT min 3V w AP pelvis DATE: 08/12/2022 13:07 INDICATION: Left hip pain TECHNIQUE: AP pelvis. AP, lateral and crosstable lateral views of left hip COMPARISON: None FINDINGS: No pelvic fracture or bone destruction is detected. The pubic symphysis and sacroiliac join ts are intact. There is prominent degenerative disc disease of the included lower lumbar and lumbosacral spine. No fracture or dislocation, avascular necrosis or bone destruction of the left hip is detected. Hip j oint spaces are symmetric and relatively well preserved. IMPRESSION: Prominent degenerative disc disease of the lower lumbar and lumbosacral spine No fracture or dislocation or other significant abnormality of the left hip Reviewed, dictated and finalized at location L. IMPRESSION: Prominent degenerative disc disease of the lower lumbar and lumbosa cral spine No fracture or dislocation or other significant abnormality of the left hip
== END 2022-08-12 12:33 | disposition home or self-care (01) ==
PROVIDERS: PCP Family Medicine; Visit Provider Nurse Practitioner Family
DX: M51.36 Other intervertebral disc degeneration, lumbar region (principal); M85.88 Other specified disorders of bone density and structure, other site; M51.37 Other intervertebral disc degeneration, lumbosacral region; I71.43 Infrarenal abdominal aortic aneurysm, without rupture
CPT/HCPCS: 72110; 73502

== ENCOUNTER 2022-09-09 08:43 | Outpatient (CLI) | payer MEDICARE, SELFPAY ==
--- NOTE | ~2022-09-09 | US_ITS ---
EXAMINATION: US thyroid DATE: 09/09/2022 10:28 INDICATION: Nontoxic single thyroid nodule. TECHNIQUE: Multiple ultrasound images of the thyroid were obtained. COMPARISON: Ultrasound 07/02/2021, chest CT 02/11/2013 FINDINGS: The right thyroid lobe measures 4.9 x 1.7 x 1.4 cm. The left thyroid lobe measures 4.6 x 1.4 x 1.5 c m. In the right thyroid lobe, there is a 1.8 cm solid, hypoechoic, wider than tall nodule with ill-d efined margin without echogenic foci (TI-RADS TR4), stable from 02/11/13. There are subcentimeter nod ules in right thyroid lobe. IMPRESSION: 1. Thyroid nodules, likely not clinically significant. No follow-up is indicated. Reviewed, dictated and finalized at location A. IMPRESSION: 1. Thyroid nodules, likely not clinically significant. No follow-up is indicate d.
--- NOTE | ~2022-09-09 | US_ITS ---
EXAMINATION: US aorta DATE: 09/09/2022 10:42 CDT INDICATION: Evaluate for aortic aneurysm. TECHNIQUE: Grayscale, color Doppler, and pulsed Doppler images of the aorta and common iliac arteries were obtained. COMPARISON: None. FINDINGS: The proximal aorta measures 1.7 cm greatest sagittal dimension. The mid aorta measures 1.5 cm greates t sagittal dimension. The distal aorta measures 2.1 cm greatest sagittal dimension. The right common internal iliac artery measures 1.2 cm. The left common iliac artery measures 1 cm. There are scattere d areas of atherosclerotic plaque. IMPRESSION: 1. Atherosclerosis of the abdominal aorta without evidence for aneurysm. Reviewed, dictated and finalized at location L.
--- NOTE | ~2022-09-09 | US_ITS ---
EXAMINATION: US carotid duplex BI DATE: 09/09/2022 10:28 INDICATION: Cervicalgia TECHNIQUE: Grayscale, color Doppler, and pulsed Doppler images of the cervical carotid arteries were obtained. The degree of vessel stenosis is placed in one of the following categories: normal, <50%, 5 0-69%, >=70% but less than near-occlusion, near-occlusion, or total occlusion. Note that percent sten osis relative to normal distal artery lumen diameter is indirectly measured from velocity measurement s as described by Luis, et al. Radiology 2003; 229:340-346. Notes: Normal: Peak systolic velocity <125 centimeters/sec and no plaque <50%. Peak systolic velocity <125 ( EDV <40; ICA/CCA PSV ratio <2.0; used these factors only a tandem lesions or low cardiac output or co ntralateral disease) 50-69 %: PSV 125-230 (EDV 40-100; ratio 2-4) >= 70% but less than near occlusion: PSV greater than 230 (EDV > 100; ratio> 4.0) Near Occlusion: PSV that is variable; markedly narrowed lumen Occlusion: Absent flow on color/spectral Doppler and no lumen on sun scale. COMPARISON: None. FINDINGS: RIGHT: The right common carotid artery (CCA) peak systolic velocity (PSV) is 82 cm/s. The right internal car otid artery (ICA) PSV is 63 cm/s. The right ICA end-diastolic velocity (EDV) is 21 cm/s. The right IC A/CCA PSV ratio is 0.8. The external carotid artery (ECA) PSV is 53 cm/s. There is antegrade flow in the right vertebral artery. LEFT: The left CCA PSV is 85 cm/s. The left ICA PSV is 88 cm/s. The left ICA EDV is 26 cm/s. The left ICA/C CA PSV ratio is 1.0. The ECA PSV is 30 cm/s. There is antegrade flow in the left vertebral artery. IMPRESSION: 1. Less than 50% stenosis in the right internal carotid artery by sonographic criteria. 2. Less than 50% stenosis in the left internal carotid artery by sonographic criteria. Reviewed, dictated and finalized at location L. IMPRESSION: 1. Less than 50% stenosis in the right internal carotid artery by sonographic monisha juárez. 2. Less than 50% stenosis in the left internal carotid artery by sonographic benjamin dominguez.
== END 2022-09-09 08:44 | disposition home or self-care (01) ==
PROVIDERS: PCP Family Medicine; Visit Provider Nurse Practitioner Family
DX: M54.2 Cervicalgia (principal); E04.2 Nontoxic multinodular goiter; I71.40 Abdominal aortic aneurysm, without rupture, unspecified; I65.23 Occlusion and stenosis of bilateral carotid arteries
CPT/HCPCS: 76536; 76775; 93880

== ENCOUNTER 2022-11-24 09:09 | Outpatient (CLI) | payer MEDICARE, SELFPAY ==
--- NOTE | ~2022-11-24 | MR_ITS ---
MRI of the brain Clinical History: Amnesia Technique: Axial and sagittal T1-weighted images were acquired. These were followed by axial T2-weigh rajeev, diffusion weighted, gradient, and FLAIR images. COMPARISON: 02/13/2013 Findings: There is no acute infarct, intracranial hemorrhage, or mass lesion. There are several tiny foci of hyperintense signal in the periventricular white matter, consistent with minimal chronic micr ovascular ischemic change. Ventricles and subarachnoid spaces are minimally dilated. Orbits are unremarkable. Paranasal sinuses and mastoid air cells are clear. Major intracranial flow voids are grossly intact. Sagittal midline structures are intact. IMPRESSION: Minimal chronic microvascular ischemic changes, otherwise unremarkable exam. Reviewed, dictated and finalized at location .
== END 2022-11-24 09:10 | disposition home or self-care (01) ==
PROVIDERS: PCP Family Medicine; Visit Provider Family Medicine
DX: R41.3 Other amnesia (principal)
CPT/HCPCS: 70551

== ENCOUNTER 2023-12-23 13:15 | Outpatient (RCR) | payer MEDICARE, SELFPAY ==
--- NOTE | 2023-09-27 11:11 | OPREHPOC ---
Outpatient Therapy Plan of Care This is a Multidisciplinary Plan of Care that may contain components documented by all disciplines (PT, OT, and ST.) PT Problem 1 PT Problem #1 Knowledge Deficit PT Goal 1 Goal [place] with HEP Target Visit 4 PT Problem 2 PT Problem #2 Impaired Balance PT Goal 1 Goal Improve Tinetti score by 5 points to reduce overall fall risk Target Visit 8 PT Goal 2 Goal Demonstrate ability to maintain balance on uneven surface for 30s to improve proprioception Target Visit 8 PT Problem 3 PT Problem #3 Impaired Strength PT Goal 1 Goal Improve josé hip flexion strength to 4+/5 to improve foot clearance with ADLs and walking Target Visit 8 PT Goal 2 Goal Improve josé hip abduction to 4/5 to improve lateral stability with balance and gait activity Target Visit 8 PT Problem 4 PT Problem #4 Pain PT Goal 1 Goal Report no pain greater than 2/10 with walking activity of 10 minutes or more Target Visit 8
--- NOTE | 2023-09-27 11:11 | PTOPEVAL1 ---
Assessment and note entered by Navjot Bustamante, PT Evaluation Information Assessment Status Evaluation Diagnosis Low back pain., chronic pain Onset 2021 Subjective Information Patient reports that she has had multiple falls starting about 2 years ago. Reports that she has had back issues for many years. Reports that she does get some dizziness with bending over and lifting. Reports that at times she still does have some trouble getting out of bed. Walking seems to help with pain. Reported Pain Level Pain Score 3: Self Report Assessment PT Clinical Summary Patient presents with signs and symptoms of lumbar stenosis with contribution from poor hip disassociation. Patient has some fall risk issues that can be addressed through improved core strengthening and balance training. Will benefit from skilled therapy to address deficits. Plan of Care Interventions Gait Training,Hot Pack/Cold Pack,Manual Therapy, Neuro Re-education,Therapeutic Activities, Therapeutic Exercise PT Services Indicated Yes Treatment Frequency and 2x/week for 8 visits Duration These treatments will address the objective and functional deficits as defined above. The patient will be advanced safely and appropriately in order for the patient to progress towards his/her prior level of function. Additional exercises will be introduced and as well as a comprehensive home exercise program upon discharge, if needed, ?to ensure carryover of functional gains achieved in the clinic. This treatment plan has been reviewed and agreement upon by the patient.
--- NOTE | 2023-10-21 16:39 | PCPTNOTE ---
Patient canceled due to boyfriend having procedure.
--- NOTE | 2023-11-01 16:49 | OPREHPOC ---
Outpatient Therapy Plan of Care This is a Multidisciplinary Plan of Care that may contain components documented by all disciplines (PT, OT, and ST.) PT Problem 1 PT Problem #1 Knowledge Deficit PT Goal 1 Goal [place] with HEP Target Visit 4 Progress Met PT Problem 2 PT Problem #2 Impaired Balance PT Goal 1 Goal Improve Tinetti score by 5 points to reduce overall fall risk Target Visit 8 Progress Partially Met PT Goal 2 Goal Demonstrate ability to maintain balance on uneven surface for 30s to improve proprioception Target Visit 8 Progress Partially Met PT Problem 3 PT Problem #3 Impaired Strength PT Goal 1 Goal Improve josé hip flexion strength to 4+/5 to improve foot clearance with ADLs and walking Target Visit 16 Progress Partially Met PT Goal 2 Goal Improve josé hip abduction to 4/5 to improve lateral stability with balance and gait activity Target Visit 16 Progress Partially Met PT Problem 4 PT Problem #4 Pain PT Goal 1 Goal Report no pain greater than 2/10 with walking activity of 10 minutes or more Target Visit 16 Progress Partially Met
--- NOTE | 2023-11-01 16:49 | PTOPPROG ---
Assessment and note entered by Navjot Bustamante, PT Evaluation Information Assessment Status Progress Diagnosis Low back pain., chronic pain Onset 2021 Subjective Information Overall feels that she does not feel too bad. She did have some issues last week with headaches which has set her back recently in comfort. As far as her back goes with sleeping it is better but she has had a couple visits where it was really bothering her. She feels therapy is helping and she has been more accountable to activity and exercise. Assessment PT Clinical Summary Patient has seen some objective and subjective [id number] at this time. Continues to have difficulty with balance and hip strength but has progressed to more standing functional activity to address this. Will continue to benefit from skilled therapy to address objective deficits listed. Plan of Care Interventions Gait Training,Hot Pack/Cold Pack,Manual Therapy, Neuro Re-education,Therapeutic Activities, Therapeutic Exercise PT Services Indicated Yes Treatment Frequency and 2x/week for 8 visits Duration These treatments will address the objective and functional deficits as defined above. The patient will be advanced safely and appropriately in order for the patient to progress towards his/her prior level of function. Additional exercises will be introduced and as well as a comprehensive home exercise program upon discharge, if needed, ?to ensure carryover of functional gains achieved in the clinic. This treatment plan has been reviewed and agreement upon by the patient.
--- NOTE | 2023-11-22 14:31 | PCPTNOTE ---
Patient canceled due to partner having a procedure.
--- NOTE | 2023-12-13 13:52 | OPREHPOC ---
Outpatient Therapy Plan of Care This is a Multidisciplinary Plan of Care that may contain components documented by all disciplines (PT, OT, and ST.) PT Problem 1 PT Problem #1 Knowledge Deficit PT Goal 1 Goal / Goal Update [place] with HEP Target Visit 4 Progress Met PT Problem 2 PT Problem #2 Impaired Balance PT Goal 1 Goal / Goal Update Improve Tinetti score by 5 points to reduce overall fall risk Target Visit 8 Progress Partially Met Comment Improved by 2 points PT Goal 2 Goal / Goal Update Demonstrate ability to maintain balance on uneven surface for 30s to improve proprioception Target Visit 8 Progress Partially Met Comment Still LOB noted around 10s PT Problem 3 PT Problem #3 Impaired Strength PT Goal 1 Goal / Goal Update Improve josé hip flexion strength to 4+/5 to improve foot clearance with ADLs and walking Target Visit 20 Progress Partially Met PT Goal 2 Goal / Goal Update Improve josé hip abduction to 4/5 to improve lateral stability with balance and gait activity Target Visit 20 Progress Partially Met PT Problem 4 PT Problem #4 Pain PT Goal 1 Goal / Goal Update Report no pain greater than 2/10 with walking activity of 10 minutes or more Target Visit 16 Progress Partially Met
--- NOTE | 2023-12-13 13:52 | PTOPPROG ---
Assessment and note entered by Navjot Bustamante, PT Evaluation Information Assessment Status Progress Diagnosis Low back pain., chronic pain Onset 2021 Subjective Information Reports that overall she is doing well. Still gets really stiff if she has been inactive for a while . She is still concerned about her balance and would like to keep working on functional stability and balance activity as she always feels more comfortable when she has been through therapy. Assessment PT Clinical Summary Patient has seen some progress with exercise and mobility. Still demonstrates some weakness and instability and will continue to benefit from skilled therapy to continue to reach functional goals and improve spinal stability and balance. Plan of Care Interventions Gait Training,Hot Pack/Cold Pack,Manual Therapy, Neuro Re-education,Therapeutic Activities, Therapeutic Exercise PT Services Indicated Yes Treatment Frequency and 2x/week for 8 visits Duration These treatments will address the objective and functional deficits as defined above. The patient will be advanced safely and appropriately in order for the patient to progress towards his/her prior level of function. Additional exercises will be introduced and as well as a comprehensive home exercise program upon discharge, if needed, ?to ensure carryover of functional gains achieved in the clinic. This treatment plan has been reviewed and agreement upon by the patient.
--- NOTE | 2023-12-14 09:55 | PCPTNOTE ---
Patient was canceled 12/07/23 due to therapist out with illness.
== END 2023-12-23 16:24 | disposition still patient (30) ==
LOC: ANHGOSHPT 13:15
PROVIDERS: PCP Internal Medicine; Visit Provider Internal Medicine
DX: M54.50 Low back pain, unspecified (principal)
CPT/HCPCS: 97014; 97110; 97112; 97140; 97161; 97530; G0283

== ENCOUNTER 2024-01-02 12:30 | Outpatient (RCR) | payer MEDICARE, SELFPAY ==
--- NOTE | 2023-12-29 13:33 | PCPTNOTE ---
Patient called & cancelled scheduled appointment this date due to her boyfriend being in the hospital.
--- NOTE | 2024-01-13 16:17 | PCPTNOTE ---
Patient cancelled today's Progress Note visit.
--- NOTE | 2024-03-01 09:24 | PTOPDC ---
Assessment and note entered by Sangeeta Reynoso, PT, DPT Evaluation Information Assessment Status Discharge - Pt Not Presen Diagnosis Low back pain., chronic pain Onset 2021 Subjective Information Pt cancelled her last scheduled appointment on and stated she will call back to follow up. Have not heard from her since. Assessment PT Clinical Summary Pt completed 18 visits of skilled therapy. She will be discharged at this time d/t no follow up with clinic.
== END 2024-03-01 10:58 | disposition home or self-care (01) ==
LOC: ANHGOSHPT 12:30
PROVIDERS: PCP Internal Medicine; Visit Provider Internal Medicine
DX: M54.50 Low back pain, unspecified (principal); G89.29 Other chronic pain
CPT/HCPCS: 97110; 97530

== ENCOUNTER 2024-01-12 07:51 | Outpatient (CLI) | payer MEDICARE, SELFPAY ==
--- NOTE | ~2024-01-12 | US_ITS ---
EXAMINATION: US soft tissue abdomen DATE: 01/12/2024 10:03 INDICATION: Unspecified abdominal pain. TECHNIQUE: Multiple grayscale and Doppler ultrasound images of the abdomen were obtained. COMPARISON: CT abdomen and pelvis 09/04/2014 FINDINGS: There is no abnormal mass or hernia in anterior abdominal wall. IMPRESSION: 1. No abnormal mass or hernia in anterior abdominal wall. Reviewed, dictated and finalized at location A.
--- NOTE | ~2024-01-12 | US_ITS ---
EXAMINATION: US aorta DATE: 01/12/2024 10:01 INDICATION: Atherosclerotic aorta. TECHNIQUE: Grayscale, color Doppler, and pulsed Doppler images of the aorta and common iliac arteries were obtained. COMPARISON: 09/09/2022 FINDINGS: The proximal aorta measures 2.2 cm in maximal AP diameter. The mid aorta measures 1.6 cm. The distal aorta measures 2.5 cm. The right common iliac artery measures 1.3 cm. The left common iliac artery me asures 0.6 cm. IMPRESSION: 1. Normal caliber abdominal aorta. Reviewed, dictated and finalized at location B.
== END 2024-01-12 07:52 | disposition home or self-care (01) ==
PROVIDERS: PCP Internal Medicine; Visit Provider Clinical Nurse Specialist
DX: I70.0 Atherosclerosis of aorta (principal); R10.9 Unspecified abdominal pain
CPT/HCPCS: 76705; 76775

== ENCOUNTER 2024-02-20 10:43 | Outpatient (CLI) | payer MEDICARE, SELFPAY | END 2024-02-20 10:44 | disposition home or self-care (01) | LOC: ANHGOSHLAB 10:44 | PROVIDERS: PCP Internal Medicine; Visit Provider Clinical Nurse Specialist | DX: R41.3 Other amnesia (principal); F41.9 Anxiety disorder, unspecified | CPT/HCPCS: 36415; 82607; 84443 ==

== ENCOUNTER 2024-04-10 06:33 | Outpatient (CLI) | payer MEDICARE, SELFPAY ==
--- NOTE | ~2024-04-10 | MR_ITS ---
MRI of the brain Clinical History: Amnesia Technique: Axial and sagittal T1-weighted images were acquired. These were followed by axial T2-weigh rajeev, diffusion weighted, gradient, and FLAIR images. Following intravenous administration of 15 cc Mu ltiHance gadolinium, T1-weighted fat-sat imaging was performed in the axial and coronal planes. COMPARISON: 11/24/2022 Findings: There is no acute infarct, intracranial hemorrhage or mass lesion. Minimal chronic white ma tter changes are noted in the periventricular white matter. Ventricles and subarachnoid spaces are unremarkable. Orbits are unremarkable. Paranasal sinuses and m astoid air cells are clear. Major intracranial flow voids are intact. Sagittal midline structures are intact. No abnormal postcontrast enhancement. IMPRESSION: Minimal chronic microvascular ischemic change, otherwise unremarkable exam. Reviewed, dictated and finalized at location M. ERCIAL TELLER
== END 2024-04-10 06:34 | disposition home or self-care (01) ==
PROVIDERS: PCP Internal Medicine; Visit Provider Clinical Nurse Specialist
DX: R41.3 Other amnesia (principal)
CPT/HCPCS: 70553; A9577

== ENCOUNTER 2024-08-28 14:47 | Outpatient (CLI) | payer MEDICARE, SELFPAY ==
--- NOTE | ~2024-08-28 | XR_ITS ---
EXAMINATION: XR wrist LT w scaphoid, XR wrist RT w scaphoid, XR hand RT min 3V, XR hand LT min 3V DATE: 08/28/2024 15:07 INDICATION: Generalized bilateral hand and wrist pain post fall. Confusion and unspecified wrist. Sti ffness of the right hand. TECHNIQUE: 1. Posteroanterior, ulnar deviation, oblique, and lateral views of the left wrist were obtained. 2. Dorsal palmar, oblique and lateral views of the left hand were obtained. 3. Posteroanterior, ulnar deviation, oblique, and lateral views of the right wrist were obtained. 4. Dorsal palmar, oblique and lateral views of the right hand were obtained. COMPARISON: None. FINDINGS: There is 1 mm ulnar positive variance at both wrists. Persistent subtle cystlike changes at the ulnar side of the lunate both the left and right which could be seen with ulnocarpal impaction. Otherwise normal alignment at the bilateral hands and wrists. No fractures identified. 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 Small erosion at the radial base of the right second proximal phalanx. Soft ti ssues are unremarkable. IMPRESSION: 1. Degenerative skeletal changes as detailed above. No acute osseous abnormality at either hand or wr ist. Reviewed, dictated and finalized at location A. IMPRESSION: 1. Degenerative skeletal changes as detailed above. No acute osseous abnormalit y at either hand or wrist. IMPRESSION: 1. Degenerative skeletal changes as detailed above. No acute osseous abnormalit y at either hand or wrist. IMPRESSION: 1. Degenerative skeletal changes as detailed above. No acute osseous abnormalit y at either hand or wrist.
== END 2024-08-28 14:48 | disposition home or self-care (01) ==
LOC: GOSHIMG 14:48
PROVIDERS: PCP Clinical Nurse Specialist; Visit Provider Clinical Nurse Specialist
DX: M25.641 Stiffness of right hand, not elsewhere classified (principal); M25.642 Stiffness of left hand, not elsewhere classified
CPT/HCPCS: 73110; 73130

== ENCOUNTER 2024-09-07 10:32 | Outpatient (CLI) | payer MEDICARE, SELFPAY ==
--- NOTE | ~2024-09-07 | MR_ITS ---
MRI of the left shoulder Technique: Axial proton-density fat-sat images, coronal proton density fat-sat and T2 fat-sat images, and sagittal T1-weighted and T2 fat-sat images were acquired. Clinical History: Pain Findings: There is mild AC joint degenerative change with bony productive change and marrow edema abo ut the joint. Coracoclavicular, coracoacromial, and coracohumeral ligaments appear intact. There is a 1.1 x 1.0 cm area of full-thickness tear at the central aspect of the distal supraspinatus tendon. There is background severe supraspinatus and infraspinatus tendinosis. Subscapularis tendon intact with mild tendinosis. Tendon of long head of the biceps is intact. No labral tear evident. Inferior glenohumeral ligament intact. There is small glenohumeral joint effusion with fluid passing through the rotator cuff defect into the subacromial/subdeltoid bursa. No degenerative change of the glenohumeral joint. No muscle atrophy or edema. Impression: 1.1 x 1.0 cm full-thickness tear at the central aspect of the distal supraspinatus tendon. Background rotator cuff tendinosis. Mild AC joint degenerative change. Reviewed, dictated and finalized at [facility]. Impression: 1.1 x 1.0 cm full-thickness tear at the central aspect of the distal supraspina tus tendon. Background rotator cuff tendinosis. Mild AC joint degenerative change.
== END 2024-09-07 10:33 | disposition home or self-care (01) ==
LOC: GOSHIMG 10:34
PROVIDERS: PCP Clinical Nurse Specialist; Visit Provider Clinical Nurse Specialist
DX: M19.012 Primary osteoarthritis, left shoulder (principal)
CPT/HCPCS: 73221

== ENCOUNTER 2024-10-01 09:52 | Outpatient (CLI) | payer MEDICARE, SELFPAY ==
--- OUTSIDE RECORDS SUMMARY | 2024-10-01 10:48 | XMS_ITS | Encounter Summary ---
Author Organization [facility] Address [address] [facility] [address] [place] [address] Phone Care Team Providers Care Job Training Specialist Name Role Phone Referral, Self Unavailable Unavailable Jean Paul Wang DO Primary Care Provider [phone]- [phone] Encounter Details Date Type Department Care Team (Late st Contact Info) Description 09/13/2024 Results Follow-Up [facility] [address] Advanced Medicine 6th [place] [address] [place] [address] Adilia Abad MD [address] [place] [address] Neuro MR Outside Consult Social History Tobacco Use Types Packs/Day Years Used Date Smoking Tobacco: Former Cigarettes Q uit: 04/25/1994 Smokeless Tobacco: Never Comments:Quit AUDIT-C Answer Date Recorded Q1: How often do you have a drink containing alc ohol? Monthly or less 07/30/2021 Q2: How many drinks containi ng alcohol do you have on a typical day when you are drinking? 3 or 4 07/30/2021 Q3: How often do you have si x or more drinks on one occasion? 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
--- OUTSIDE RECORDS SUMMARY | 2024-10-01 10:48 | XMS_ITS | Referral Summary ---
Author Organization [facility] Address [address] [place] [address] Care Team Providers Care Gear Shaper Set Up Operator Name Role Phone Referral, Self Unavailable Unavailable Jean Paul Wang DO Primary Care Provider [phone]- [phone] Encounters Date Type Department Care Team Description 09/20/2024 Orders Only [facility] Scanning, Provider 09/13/2024 Orders Only [facility] Scanning, Provider 09/13/2024 Results Follow-Up [facility] [address] Advanced Medicine [address]th [place] [address] [place] [id number] Adilia Abad MD Neuro MR Outside Consult 09/11/2024 5:27 PM CDT - 09/11/2024 11:59 PM CDT Hospital Encounter [facility] [address] [place] [id number] Diagnosis unknown Discharge Disposition: Discharge to home or self care 09/05/2024 Documentation [facility] [place] [address] Sharda Smith RMA 09/04/2024 1:00 PM CDT Office Visit [facility] [address] Advanced Medicine 6th [place] [address] [place] [id number] Adilia Abad MD Bipolar affective disorder, current episode hypomanic (HCC) (Primary Dx); Memory loss 07/05/2024 Telephone [facility] Scheduling [address] [place] [address] Glenroy Rodriguez MD Scheduling Appointments from Last 3 Months Allergies Active Allergy Reactions Criticality Noted Date Comments Adhesive Rash Medium 07/28/2021 Can use paper tape Ciprofloxacin Other (See comments),Hives,Swellin g High Reaction: Unknown, , , Reaction: Hives, Swelling, Codeine Hallucinations Medium Hallucination/Dis orientation Enoxaparin Latex Unknown 07/01/2021 Reaction: Unknown, Levofloxacin Other (See comments),Swelling,Rash Reaction: Unknown, , , Reaction: Swelling, Rash, Levothyroxine Unknown 07/01/2021 Nalbuphine Unknown Quinalan Rash Medium 02/25/2010 cipro's and such Quinolones Other (See comments) 07/01/2021 Reaction: Unknown, , Reaction: Other, Sulfa (Sulfonamide Antibiotics) Hives,Swelling High 07/01/2021 Swelling Medications LORazepam (ATIVAN) 0.5 mg tablet Take 1 tablet (0.5 mg total) by mouth every 8 (eight) hours as needed for anxiety 5 01/03/20 19 Active valACYclovir (VALTREX) 500 mg tabletIndications: Cold sores Take 1 tablet (500 mg total) by mouth 2 (two) times a day as needed 09/29/19 19 Active metoprolol XL (TOPROL-XL) 200 mg extended release tabletIndications: hypertension Take 1 tablet (200 mg total) by mouth nightly Active diclofenac sodium (VOLTAREN) 1 % gel Apply 2 g topically 4 (four) times a day as needed Active collagen, hydrolysate, bovine, (collagen, hydr, bovine,, bulk,) 100 % powderIndications: Skin, hair , nail support. every morning Mixes in a drink Active ifmdxuxo-jcxh-dcg- folic acid (One Daily Complete) 18-0.4 mg tablet Act jose acetaminophen (TYLENOL) 325 mg tablet Take 1 tablet (325 mg total) by mouth every 4 (four) hours as needed Active krill oil 500 mg capsule Take by mouth Active umxkoklk-qfop-jgqk g-lmgt-zvtyi 100 mg-150 mg- 50 mg-150 mg capsule Take by mouth Active ondansetron ODT (ZOFRAN-ODT) 4 mg disintegrating tablet Take 1 tablet (4 mg total) by mouth every 8 (eight) hours as needed for nausea or vomiting 20 tablet 03/01/20 24 Active neomycin-polymyxin -dexAMETHasone (MAXITROL) 3.5mg/mL-10,000 unit/mL-0.1 % ophthalmic suspension 03/12/20 24 Active traMADoL (ULTRAM) 50 mg tablet Take 1 tablet (50 mg total) by mouth 2 (two) times a day as needed for pain 08/29/19 25 Active methocarbamoL (ROBAXIN) 500 mg tablet TAKE 1 TABLET BY MOUTH TWICE DAILY NEEDED FOR MUSCLE PAIN 08/29/19 25 Active amitriptyline (ELAVIL) 50 mg tabletIndications: depression,Insomni a Take 50 mg by mouth nightly Discontin ued(Thera py completed ) mometasone (ELOCON) 0.1 % cream Apply to BAHA site BID PRN 45 g 1 05/21/19 21 025 Discontin ued(Thera py completed ) cyclobenzaprine (FLEXERIL) 10 mg tablet Take 10 mg by mouth 3 (three) times a day as needed for muscle spasms 06/13/19 22 025 Discontin ued(Thera py completed ) calcium citrate/vitamin D3 (CITRACAL + D ORAL) Take by mouth every morning Alternates 1 tab with 0.5 tablet Discontin ued(Thera py completed ) metroNIDAZOLE (METROCREAM) 0.75 % creamIndications:A cne Rosacea Apply to face BID 45 g 11 11/10/19 23 025 Discontin ued(Thera py completed ) inulin-chromium picolinate 2-100 gram-mcg tablet,chewable Take by mouth Discontin ued(Thera py completed ) diclofenac-miSOPRO Stol DR (ARTHROTEC 50) 50-200 mg-mcg EC tablet diclofenac 50 mg-misoprostol 200 mcg tablet,immed.a nd delayed release TAKE 1 TABLET BY MOUTH TWICE A DAY Discontin ued(Thera py completed ) fluconazole (DIFLUCAN) 200 mg tablet Take 1 tablet (200 mg total) by mouth daily 12/03/19 Discontin ued(Thera py completed ) dextroamphetamine- amphetamine (ADDERALL) 5 mg tablet dextroamphetam ine-amphetamin e 5 mg tablet TAKE 1 TABLET BY MOUTH TWICE A DAY AT LEAST 4 6 HOURS APART Discontin ued(Thera py completed ) escitalopram (LEXAPRO) 5 mg tablet Take 1 tablet (5 mg total) by mouth daily 02/20/20 Discontin ued(Thera py completed ) lidocaine (XYLOCAINE) 5 % ointment Apply topically 05/02/19 Discontin ued(Thera py completed ) nitrofurantoin monohydrate (MACROBID) 100 mg capsule Take 1 capsule (100 mg total) by mouth 2 (two) times a day 02/15/20 Discontin ued(Thera py completed ) ofloxacin (FLOXIN) 0.3 % otic solution ADMINISTER 5 DROPS INTO THE LEFT EAR EVERY OTHER DAY Discontin ued(Thera py completed ) polymyxin B-trimethoprim (POLYTRIM) ophthalmic solution LOCATION RIGHT EYE. INSTALL DROP IN RIGHT EYE 3X DAILY AND START 2 DAYS PRIOR TO SURGERY Discontin ued(Thera py completed ) prednisoLONE acetate (PRED FORTE) 1 % ophthalmic suspension APPLY INSTILL ONE DROP THREE TIMES DAILY IN RIGHT EYE Discontin ued(Thera py completed ) acetic acid 2 % otic solutionIndication s:Otitis Externa Apply 3-4 gtts to left ear every 3rd day 15 mL 03/01/20 Discontin ued(Thera py completed ) meclizine (ANTIVERT) 25 mg tablet Take 1 tablet (25 mg total) by mouth daily as needed Discontin ued(Thera py completed ) GaviLyte-C 240-22.72-6.72 -5.84 gram solution 03/13/20 Discontin ued(Thera py completed ) moxifloxacin (VIGAMOX) 0.5 % ophthalmic solution INSTILL 1 DROP IN BOTH EYES THREE TIMES DAILY 03/20/2013/2 025 Discontin ued(Thera py completed ) Active Problems Problem Noted Date Diagnosed Date Arthritis of right acromioclavicular joint 08/3008/30/2022 Neck pain 08/30/2022 08/30/2022 Tendinitis of right rotator cuff 08/30/2022 08/30/2022 Nasal valve stenosis 07/27/2021 Overview (07/27/2021): Added automatically from request for surgery [id number] Closed fracture of nasal bones 07/27/2021 Overview (07/27/2021): Added automatically from request for surgery [id number] Thyroid nodule 07/13/2021 Closed fracture of proximal phalanx of lesser toe of right foot 01/15/2021 08/30/2022 Effusion of interphalangeal joint of toe 021 08/30/2022 Pain in right foot 01/15/2021 08/30/2022 Prolapsed internal hemorrhoids, grade 3 09/10/19 20 Disorder of rotator cuff 05/03/2016 Pain in shoulder 04/20/2016 Elbow pain 04/20/2016 Hemorrhage of rectum and anus 11/30/2013 Overview (07/29/2016): Hemorrhage of rectum and anus Thrombosed external hemorrhoids 11/30/2013 Overview (07/29/2016): External hemorrhoid, thrombosed Osteopenia 07/02/2012 Diverticulosis 03/30/2010 Thrombosed external hemorrhoids 03/30/2010 Overview (01/10/2019): Overview: Overview: Hemorrhage of rectum and anus Overview: Overview: External hemorrhoid, thrombosed 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 Urinary incontinence 01/14/2010 Overview (01/10/2019): Overview: Dr dooley Unspecified menopausal and postmenopausal disord er 01/09/2010 Arthralgia of ankle 10/02/2009 Immunizations Immunization Administration Dates Next Due Influenza, Trivalent, Adjuva nted, Intramuscular 02/08/2019 Influenza, Trivalent, High D ose, Split, Preservative Free, Intramuscular 01/12/2018,04/11/2017,02/07/2016,03/04 Influenza, Trivalent, IM (MDV) 05/03/2012 Pneumococcal Conjugate PCV 13 02/07/2016 Tdap 04/11/2017 ZOSTER LIVE 07/12/2014 ZOSTER Recombinant 03/08/2019 Social History Tobacco Use Types Packs/Day Years Used Date Smoking Tobacco: Former Cigarettes Q uit: 04/25/1994 Smokeless Tobacco: Never Tobacco Cessation:Counseling Given: No Comments:Quit AUDIT-C Answer Date Recorded Q1: How [...] on file 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 Gender Identity Not on file Sexual Orientation Not on file Last Filed Vital Signs Vital Sign Reading Time Taken Comments Blood Pressure 115/73 09/04/2024 12:04 PM CDT Pulse 60 09/04/2024 12:04 PM CDT Temperature 36.7 C (98 F) 07/06/2022 9:07 AM CDT Respiratory Rate 22 07/06/2022 9:07 AM CDT Oxygen Saturation 97% 07/06/2022 9:07 AM CDT Inhaled Oxygen Concentration - - Weight 69.9 kg (154 lb) 09/04/2024 12:04 PM CDT Height 162.6 cm (5' 4) 09/04/2024 12:04 PM CDT Body Mass Index 26.43 09/04/2024 12:04 PM CDT Plan of Treatment Not on file Procedures Procedure Name Priority Date/Time Associated Diagnosis Comments SCAN - RADIOLOGY/IMAGING 09/20/2024 4:58 PM CDT SCAN - RADIOLOGY/IMAGING 09/13/2024 4:33 PM CDT NEURO MR OUTSIDE CONSULT Routine 09/11/2024 5:28 PM CDT Diagnosis unknown from Last 3 Months Results * SCAN - RADIOLOGY/IMAGING (09/20/2024 4:58 PM CDT) Anatomical Region Laterality Modality Other us Provider Scanning Final Result * SCAN - RADIOLOGY/IMAGING (09/13/2024 4:33 PM CDT) Anatomical Region Laterality Modality Other us Provider Scanning Final Result * Neuro MR Outside Consult (09/11/2024 5:28 PM CDT) Anatomical Region Laterality Modality N/A Magnetic Resonan ce 09/12/2024 10:0 9 AM CDT Impressions 09/12/2024 10:09 AM CDT 1. No acute intracranial abnormality. 2. Mild burden of white matter disease. 3. No microhemorrhage or superficial siderosis. No cerebral infarcts. Mild diffuse volume loss of cerebrum, which can be better evaluated with volumetric MRI. 4. Multilevel fzem-rq-aaswhwwh degenerative change of cervical spine described above. The findings, conclusions and recommendations within this report do not replace the initial findings, conclusions and recommendations made at the facility where the study was performed based upon the imaging and clinical condition at that time. Comparison with the prior report and clinical history is necessary. The provided images may or may not represent the [place] source data set and thus may contain changes that may lower the accuracy of this second-opinion interpretation. Electronically signed by: Juancarlos Huang MD, PHD Narrative 09/12/2024 10:09 AM CDT EXAMINATION: RADIOLOGY CONSULTATION ON OUTSIDE IMAGING STUDY STUDY INITIALLY PERFORMED: 05/25/2024 at institution name. TYPE OF STUDY: Multiple MRI images of the brain and cervical spine without contrast are provided at the time of this interpretation. CONTRAST ROUTE: No contrast was administered. The protocol was adequate to address the clinical question. The outside final report was not available at the time of this second opinion interpretation. TYPE OF CONSULTATION: Consult on outside imaging study with images submitted through Outside Image Sharing Service DATE OF CONSULTATION: 09/12/2024 9:57 AM HISTORY: Memory loss COMPARISON: None available. FINDINGS: Scattered small foci of T2 prolongation in the periventricular and subcortical white matter are nonspecific, likely on the basis of chronic small vessel ischemic change. No diffusion restriction suggest acute ischemic stroke. No microhemorrhage, no superficial siderosis. Corpus callosum appear normal. The ventricles appear normal in size and in configuration. Posterior fossa is unremarkable. Orbits, mastoid, paranasal sinuses are unremarkable. Mild generalized volume loss cerebrum. The alignment of cervical spine is normal. Modic type I endplate change at C3-C6. No compression fracture. Cervical cord signal appears normal. Disc height loss at C3-C7 without annular fissure. Low-lying noticed in the vertebral arteries. No soft tissue abnormality. Multilevel disc bulge or disc osteophyte complex at C2-T1 with mild to moderate canal stenosis at C4-C5 C5-C6 and C6-C7. There are multilevel facet and uncovertebral arthropathy. There are multilevel mild to moderate neuroforaminal stenosis., Procedure Note Juancarlos Huang MD PhD - 09/12/2024 EXAMINATION: RADIOLOGY CONSULTATION ON OUTSIDE IMAGING STUDY STUDY INITIALLY PERFORMED: 05/25/2024 at institution name. TYPE OF STUDY: Multiple MRI images of the brain and cervical spine without contrast are provided at the time of this interpretation. CONTRAST ROUTE: No contrast was administered. The protocol was adequate to address the clinical question. The outside final report was not available at the time of this second opinion interpretation. TYPE OF CONSULTATION: Consult on outside imaging study with images submitted through Outside Image Sharing Service DATE OF CONSULTATION: 09/12/2024 9:57 AM HISTORY: Memory loss COMPARISON: None available. FINDINGS: Scattered small foci of T2 prolongation in the periventricular and subcortical white matter are nonspecific, likely on the basis of chronic small vessel ischemic change. No diffusion restriction suggest acute ischemic stroke. No microhemorrhage, no superficial siderosis. Corpus callosum appear normal. The ventricles appear normal in size and in configuration. Posterior fossa is unremarkable. Orbits, mastoid, paranasal sinuses are unremarkable. Mild generalized volume loss cerebrum. The alignment of cervical spine is normal. Modic type I endplate change at C3-C6. No compression fracture. Cervical cord signal appears normal. Disc height loss at C3-C7 without annular fissure. Low-lying noticed in the vertebral arteries. No soft tissue abnormality. Multilevel disc bulge or disc osteophyte complex at C2-T1 with mild to moderate canal stenosis at C4-C5 C5-C6 and C6-C7. There are multilevel facet and uncovertebral arthropathy. There are multilevel mild to moderate neuroforaminal stenosis., IMPRESSION: 1. No acute intracranial abnormality. 2. Mild burden of white matter disease. 3. No microhemorrhage or superficial siderosis. No cerebral infarcts. Mild diffuse volume loss of cerebrum, which can be better evaluated with volumetric MRI. 4. Multilevel nmgr-wn-nhqqbzoj degenerative change of cervical spine described above. The findings, conclusions and recommendations within this report do not replace the initial findings, conclusions and recommendations made at the facility where the study was performed based upon the imaging and clinical condition at that time. Comparison with the prior report and clinical history is necessary. The provided images may or may not represent the [place] source data set and thus may contain changes that may lower the accuracy of this second-opinion interpretation. Electronically signed by: Juanacrlos Huang MD, PHD us Adilia Abad MD IMG MRI PROCEDURES Final Result from Last 3 Months Insurance MEDICARE [facility] MEDICARE SUPPLEMENT INSURANCE [facility] MEDICARE SUPPLEMENT INSURANCE MEDICARE [facility] MEDICARE SUPPLEMENT INSURANCE Care Teams Gear Shaper Set Up Operator Relationship Specialty Start Date End Date Jean Paul Wang DO PCP - General Internal Medicine 03/01/24 Referral, Self Referring Physician Otolaryngology 01/10/19
--- OUTSIDE RECORDS SUMMARY | 2024-10-01 10:48 | XMS_ITS | Clinical Summary ---
Author Organization [facility] Address [address] [place] [address] Care Team Providers Care Sausage Linker Name Role Phone Referral, Self Unavailable Unavailable Jean Paul Wang DO Primary Care Provider [phone] Allergies Active Allergy Reactions Criticality Noted Date [...] every morning Mixes in a drink Active zcvqeyir-pawt-bqs- folic acid (One Daily Complete) 18-0.4 mg tablet Act jose acetaminophen (TYLENOL) 325 mg tablet Take 1 tablet (325 mg total) by mouth every 4 (four) hours as needed Active krill oil 500 mg capsule Take by mouth Active bpvcmgyz-ovib-cofu g-evmp-ftpkx 100 mg-150 mg- 50 mg-150 mg capsule [...] a Take 50 mg by mouth nightly 025 Discontin ued(Thera py completed ) mometasone (ELOCON) [...] to face BID 45 g 11 11/10/19 Discontin ued(Thera py completed ) inulin-chromium picolinate [...] ear every 3rd day 15 mL 03/01/20 24 025 Discontin ued(Thera py completed ) meclizine (ANTIVERT) 25 mg tablet Take 1 tablet (25 mg total) by mouth daily as needed Discontin ued(Thera py completed ) GaviLyte-C 240-22.72-6.72 -5.84 gram solution 03/13/20 025 Discontin ued(Thera py completed ) moxifloxacin (VIGAMOX) 0.5 % ophthalmic solution INSTILL 1 DROP IN BOTH EYES THREE TIMES DAILY 03/20/20 025 Discontin ued(Thera py completed ) Active Problems Problem Noted Date Diagnosed Date Arthritis of right acromioclavicular joint 08/3008/30/2022 Neck pain 08/30/2022 08/30/2022 Tendinitis of right rotator cuff 08/30/2022 08/30/2022 Nasal valve stenosis 07/27/2021 Overview (07/27/2021): Added automatically from request for surgery [id number] Closed fracture of nasal bones 07/27/2021 Overview (07/27/2021): Added automatically from request for surgery [id number] Thyroid nodule 07/13/2021 Closed fracture of proximal [...] disord er 01/09/2010 Arthralgia of ankle 10/02/2009 Encounters Date Type Department Care Team Description 09/20/2024 Orders Only [facility], Provider 09/13/2024 Orders Only [facility], Provider 09/13/2024 Results Follow-Up [facility] [address] [facility] [address] [place] [address] [place] [address] Adilia Abad MD Neuro MR Outside Consult 09/11/2024 5:27 PM CDT - 09/11/2024 11:59 PM CDT Hospital Encounter [facility] [address] [place] [id number] Diagnosis unknown Discharge Disposition: Discharge to home or self care 09/05/2024 Documentation [facility] [facility] [address] Floor [address] [place] [address] Sharda Smith RMA 09/04/2024 1:00 PM CDT Office Visit [facility] [address] [facility] [address] [place] [address] [place] [address] Adilia Abad MD Bipolar affective disorder, current episode hypomanic (HCC) (Primary Dx); Memory loss 07/05/2024 Telephone [facility] Scheduling [address] [place] [address] Glenroy Rodriguez MD Scheduling Appointments from Last 3 Months Immunizations Immunization Administration Dates Next Due Influenza, Trivalent, Adjuva nted, Intramuscular 02/08/2019 Influenza, Trivalent, High D ose, Split, Preservative Free, Intramuscular 01/12/2018,04/11/2017,02/07/2016,03/04 Influenza, Trivalent, IM (MDV) 05/03/2012 Pneumococcal Conjugate PCV 13 02/07/2016 Tdap 04/11/2017 ZOSTER LIVE 07/12/2014 ZOSTER Recombinant 03/08/2019 Surgical History Surgery Date Site/Laterality Comments GA UNLISTED PROCEDURE INNER EAR 04/30/1994 Left Inner Ear Surgery - (Added by TW Conv) TOTAL ABDOMINAL HYSTERECTOMY W/ BILATERAL SALPINGOOPHORECTOMY 11/09/1991 Hysterectomy Total, With Removal Of One Tubes And One Ovary- (Added by TW Conv) CHOLECYSTECTOMY 04/24/2008 TONSILLECTOMY/ADENOIDECTOMY as a child WISDOM TOOTH EXTRACTION as a young adult IMPLANTATION BONE ANCHORED HEARING AID BLADDER SUSPENSION COLONOSCOPY 12/05/2019 COLONOSCOPY performed by Evon Lopez MD at [facility] GI LAB HEMORRHOID SURGERY KNEE ARTHROSCOPY W/ MENISCECTOMY 04/28/2020 Right RIGHT KNEE ARTHROSCOPY, PARTIAL MEDIAL MENISCECTOMY, CHONDROPLASTY performed by Tyree Sawant MD at [facility] CC OR GLAUCOMA SURGERY CYST REMOVAL 04/25/2020 - 04/24/2021 Left Incision and Drainage Cyst (Left breast at nipple) CATARACT EXTRACTION W/ INTRAOCULAR LENS IMPLANT Right VARICOSE VEIN SURGERY 05/26/2021 - 06/22/2021 Medical History Medical History Date Comments Personal history of other sp ecified conditions History of headache - (Added by Conv) Personal history of other di seases of the circulatory system History of hypertension - (A dded by TW Conv) PONV (postoperative nausea and vomiting) Family History Medical History Relation Name Comments Alzheimer's disease Cousin Cancer Father Family history of malignant neoplasm - (Added by TW Conv) Heart disease Mother Family history of cardiac disorder - (Added by TW Conv) Parkinsonism Mother Anesthesia problems Neg Hx Relation Name Status Comments Cousin Father Mother Social History Tobacco Use Types Packs/Day Years [...] on file Legal Sex Female 9:18 PM [employer] Gender Identity Not on file Sexual Orientation Not on file Obstetrics History Last Filed Vital Signs Vital Sign Reading [...] 09/04/2024 12:04 PM CDT Plan of Treatment Health Maintenance Due Date Last Done Comments Depression Screening 1950 Hepatitis C Screening 1950 Hepatitis B Screening 1966 Well Visit 65+ 2013 Pneumococcal vaccine 65+ (2 of 2 - PPSV23) 02/06/2017 02/07/2016 Zoster Vaccine (3 of 3) 05/03/2019 03/08/2019, 07/12 Fall Risk Assessment 07/30/2022 07/30/2021 Influenza Vaccine (Season Ended) 2024 02/08/2019, 01/12/2018, 04/11/2017, Additional history exists Osteoporosis Screening-Bone Density Scan 02/20/2026 02/21/2024, 02/21/2024, 10/29/2019, Additional history exists DTaP/Tdap/Td Vaccine (2 - Td or Tdap) 04/11/2027 04/11/2017 Breast Cancer Screening-Mammogram Discontinued 02/28/2024, 02/28/2024, 12/14/2022, Additional history exists Procedures Procedure Name Priority Date/Time Associated Diagnosis [...] better evaluated with volumetric MRI. 4. Multilevel ogvd-vp-bcrrvpet degenerative change of cervical spine described above. The findings, conclusions and recommendations within this report do not replace the initial findings, conclusions and recommendations made at the facility where the study was performed based upon the imaging and clinical condition at that time. Comparison with the prior report and clinical history is necessary. The provided images may or may not represent the [place] source data set and thus may contain [...] better evaluated with volumetric MRI. 4. Multilevel dfyk-fy-ktsdgzro degenerative change of cervical spine described above. The findings, conclusions and recommendations within this report do not replace the initial findings, conclusions and recommendations made at the facility where the study was performed based upon the imaging and clinical condition at that time. Comparison with the prior report and clinical history is necessary. The provided images may or may not represent the [place] source data set and thus may contain changes that may lower the accuracy of this second-opinion interpretation. Electronically signed by: Juancarlos Huang MD, PHD us Adilia Abad MD IMG MRI PROCEDURES Final Result from Last 3 Months Insurance MEDICARE [facility] MEDICARE SUPPLEMENT INSURANCE MEDICARE [facility] MEDICARE SUPPLEMENT INSURANCE MEDICARE [place] [id number] [facility] MEDICARE SUPPLEMENT INSURANCE Care Teams Sausage Linker Relationship Specialty Start Date End Date Jean Paul Wang DO PCP - General Internal Medicine 03/01/24 Referral, Self Referring Physician Otolaryngology 01/10/19
--- OUTSIDE RECORDS SUMMARY | 2024-10-01 10:48 | XMS_ITS | Clinical Summary ---
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 Active amitriptyline (ELAVIL) 50 mg tablet Take 25 mg by mouth daily at bedtime. Active diclofenac sodium (VOLTAREN) 1 % gel Apply to affected area 4 times daily. Active metoprolol succinate (TOPROL XL) 200 mg Extended Release 24 hour tablet Take 200 mg by mouth daily at bedtime. Active ascorbic acid (SUPER C ORAL) Take 1 Tablet by mouth daily. Active LORazepam (ATIVAN) 0.5 mg tabletIndicatio ns:Generalized anxiety disorder TAKE 1 TABLET BY MOUTH EVERY 8 HOURS NEEDED FOR ANXIETY 30 Tablet 5 1 Active krill oil 500 mg Capsule Take by mouth. Acti ve jnfntnt-ohfh-gv cmb-anhl-kiywas 100 mg-150 mg- 50 mg-150 mg Capsule Take by mouth. Activ e acetaminophen (TYLENOL) 325 mg tablet Take 325 mg by mouth every 4 hours as needed. Active valACYclovir (VALTREX) 500 mg tabletIndicatio ns:HSV infection TAKE 1 TABLET(500 MG) BY MOUTH TWICE DAILY 30 Tablet 6 4 Active ASHWAGANDHA EXTRACT ORAL Take by mouth. Ac tive estradioL (Estrace) 0.01% (0.1 mg/g) vaginal cream Insert 1 Gram vaginally twice weekly. Please use daily for first two weeks then twice weekly afterwards 42.5 Gram 3 5 Active polycarbophil calcium (FIBERCON) 625 mg tablet Take 625 mg by mouth daily. Takes 1.5 capsules per night Active atorvastatin (LIPITOR) 40 mg tablet Take 1 Tablet (40 mg) by mouth daily at bedtime. 30 Tablet 5 Active ibuprofen (MOTRIN) 400 mg tablet Take 1 Tablet (400 mg) by mouth every 6 hours as needed for Pain, Mild. 30 Tablet 5 Active methocarbamoL (ROBAXIN) 500 mg tablet TAKE 1 TABLET BY MOUTH TWICE DAILY NEEDED FOR MUSCLE PAIN 5 Active traMADol (ULTRAM) 50 mg tablet Take 50 mg by mouth. 5 Active Hospital, Clinic, or Other Facility Administered Medication Ordered Dose Route Frequency Start Date End Date Status methylPREDNISolone acetate (DEPO-Medrol) injection 80 mgIndications:Chron ic left shoulder pain 80 mg Intra-arTIC u ONE TIME ONLY 09/24/2024 09/24/2024 Ended Active Problems Problem Noted Date Diagnosed Date Weakness of right upper extremity 05/25/2024 HTN (hypertension), benign 05/25/2024 Anxiety state 05/25/2024 Arm weakness 05/25/2024 Memory loss 02/13/2024 Prolapsed internal hemorrhoids, grade 3 09/10/19 20 MMT (medial meniscus tear) 09/01/2019 Disorder of rotator cuff 05/03/2016 Elbow pain 04/20/2016 External hemorrhoids 11/30/2013 Overview (07/18/2017): Overview: Hemorrhage of rectum and anus Thrombosed external hemorrhoids 11/30/2013 Overview (07/18/2017): Overview: External hemorrhoid, thrombosed Osteopenia 07/02/2012 External hemorrhoids 03/30/2010 Diverticulosis 03/30/2010 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 Urinary incontinence 01/14/2010 Overview (01/14/2010): Dr dooley LMP 1991 SERVANDO/ovaries and tubes remain 01/09/2010 Arthralgia of ankle 10/02/2009 Encounters Date Type Department Care Team Description 09/25/2024 External Device Data STL ABSTRACTION Provider, Abstract 09/25/2024 External Device Data STL ABSTRACTION Provider, Abstract 09/25/2024 Telephone [facility] Neurosurgery - [facility] [place] [address] [place] [address] Srinivas Meadows MD needs appointment 09/24/2024 3:10 PM CDT Ancillary Procedure [facility] Orthopedic Surgery at the [facility] Medicine [address] [place] [address] Della Stephenson PA-C Chronic left shoulder pain 09/24/2024 3:05 PM CDT Ancillary Procedure [facility] Orthopedic Surgery at the [facility] Medicine [address] [place] [address] Della Stephenson PA-C Chronic left shoulder pain 09/24/2024 3:00 PM CDT Office Visit [facility] Orthopedic Surgery at the [facility] Medicine [address] [place] [address] Della Stephenson PA-C Chronic left shoulder pain (Primary Dx); Degenerative cervical spinal stenosis; Complete tear of left rotator cuff, unspecified whether traumatic 08/28/2024 External Device Data STL ABSTRACTION Provider, Abstract 08/21/2024 External Device Data STL ABSTRACTION Provider, Abstract 08/21/2024 External Device Data STL ABSTRACTION Provider, Abstract 07/24/2024 External Device Data STL ABSTRACTION Provider, Abstract 07/17/2024 External Device Data STL ABSTRACTION Provider, Abstract from Last 3 Months Family History Medical History Relation Name Comments Healthy Daughter 1 Kayy Breast Cancer Daughter 2 Shima Thyroid Disease Daughter 2 Shima hyperthyroid Cancer Father Leukemia/bone Other Maternal Grandfather black l jesika Heart Disease Maternal Grandmother Heart Disease Mother Hypertension Mother Parkinson's Disease Mother Diabetes Other H-Deondre Liver Disease Other H-Deondre Hep C Breast Cancer Paternal Aunt Unknown Paternal Grandfather Other Paternal Grandmother mental illness Breast Cancer Sister Magi 60's Other Sister Magi degenerative di sc disease Colon Cancer Neg Hx Ovarian Cancer Neg Hx Relation Name Status Comments Daughter 1 Kayy Alive Daughter 2 Shima Alive Father Maternal Grandfather Maternal Grandmother Mother Other H-Deondre Alive Paternal Aunt Paternal Grandfather Paternal Grandmother Sister Magi Alive Social History Tobacco Use Types Packs/Day Years Used Date Smoking Tobacco: Former Cigarettes Q uit: 04/25/1995 Smokeless Tobacco: Never Tobacco Cessation:Counseling Given: Not Answered Alcohol Use Standard Drinks/Week Comments Yes 0 (1 standard drink = 0.6 oz pur e alcohol) maybe a glass of wine a month Feeling Safe Answer Date Recorded Are you in a relationship wi th someone who hurts you emotionally and/or physically? No 05/24/2024 Food Insecurity Answer Date Recorded Patient needs follow up regardin 08/17/2024 Transportation Needs Answer Date Record ed Patient needs follow up regardin 08/17/2024 Housing Stability Answer Date Recorded Social/Environmental Concerns No concerns Utility Needs Answer Date Recorded Patient needs follow up regardin 08/17/2024 Comments No Sex and Gender Information Value Date Recorded Sex Assigned at Female 03/07/2024 1:19 PM CLINICAL TECH Legal Sex Female 5:35 AM CLINICAL TECH Gender Identity Female 03/07/2024 1:25 PM CLINICAL TECH Sexual Orientation Asexual 03/07/2024 1: 19 PM CLINICAL TECH Occupation Industry Job Start Date Job End Date Not on file Not on file Not on file Not on file Last Filed Vital Signs Vital Sign Reading Time Taken Comments Blood Pressure 143/67 05/25/2024 12:00 PM CLINICAL TECH Pulse 80 06/20/2024 12:36 PM CLINICAL TECH Temperature 36.8 C (98.3 F) 05/25/2024 12:00 PM CLINICAL TECH Respiratory Rate 18 05/25/2024 12:00 PM CLINICAL TECH Oxygen Saturation 98% 06/20/2024 12:36 PM CLINICAL TECH Inhaled Oxygen Concentration - - Weight 69.9 kg (154 lb 2 oz) 06/20/2024 12:36 PM CLINICAL TECH Height 162.6 cm (5' 4) 06/20/2024 12:36 PM CLINICAL TECH Body Mass Index 26.46 06/20/2024 12:36 PM CLINICAL TECH Plan of Treatment Upcoming Encounters Date Type Department Care Team (Late st Contact Info) Description 11/07/2024 9:30 AM CDT Office Visit [facility] Orthopedic Surgery at the [facility] Medicine [address] [place] [address] Della Stephenson, ALLAN [address] [place] [address] 11/13/2024 11:30 AM CDT Office Visit [facility] Neurosurgery - [facility] [address] [place] [address] Srinivas Meadows MD [address] [address] -[phone] (Work) 06/13/2025 8:00 AM CLINICAL TECH Confidential [facility] [address] [place] [address] Ar Alaniz, PhD Dept of Neuropsychology [address] [place] [address] Health Maintenance Due Date Last Done Comments PNEUMOCOCCAL VACCINE 50+ YEA RS (2 of 2 - PPSV23) 02/06/2017 02/07/2016 ZOSTER VACCINE (3 of 3) 05/03/2019 03/08/2019, 07/12 RSV VACCINE (60+ or ) (1 - 1-dose 75+ series) 2023 INFLUENZA VACCINE (#1) 2023 9, 01/12/2018, 04/11/2017, Additional history exists OSTEOPOROSIS SCREENING 02/20/2026 4, 10/29/2019, 08/01/2017, Additional history exists DTAP/TDAP/TD VACCINES (2 - T d or Tdap) 04/11/2027 04/11/2017 COLORECTAL SCREENING Discontinued 04/05/2024, 04/05/2024, 12/05/2019, Additional history exists Colorectal Cancer Screening Discontinued FIT-DNA Q 3 years Discontinued FIT/FOBT Q 1 year Discontinued Flex Sig/CT Colonography Q 5 years Discontinued Medical Devices Implanted Type Area Hall Tender Device Identifier Shelf Expiration Date Model / Serial / Lot [employer]aha Ear Implant Ear Description:MRI conditional for 1.5T only - Normal mode, no KWAME limitations and no coil restrictions -gris 05/25/24 Procedures Procedure Name Priority Date/Time Associated Diagnosis Comments COLONOSCOPY REPORT 04/05/2024 10 :15 AM CLINICAL TECH XR DEXA BONE DENSITY AXIAL 1 OR MORE SITES Routine 02/21/2024 1:50 PM CDT Menopause from Last 3 Months or Most Recently Relevant to Health Maintenance Results * COLONOSCOPY REPORT (04/05/2024 10:15 AM CLINICAL TECH) Narrative Procedure Note Emma Goetz MD - 04/05/2024 10:15 AM CST [facility] Endoscopy Patient Name: Lisandra Jorge Procedure Date: 04/05/2024 Date of : 1950 Attending MD: Emma Goetz MD, Procedure: Colonoscopy Indications: Screening for colorectal malignant neoplasm Providers: Emma Goetz MD Referring MD: Jean Paul Wang Medicines: Monitored Anesthesia Care Complications: No immediate complications. Procedure: Informed consent was obtained for the procedure, including moderate sedation after risks were discussed. Based on the pre-procedure assessment, including review of the patient's medical history, medications, allergies, and review of systems, the patient was deemed to be an appropriate candidate for sedation. A timeout was performed. Continuous ECG monitoring, pulse oximetry, blood pressure monitoring, and direct observation were performed. The Colonoscope was introduced through the anus and advanced to the cecum, identified by appendiceal orifice and ileocecal valve. The colonoscopy was technically difficult and complex due to a redundant colon and a tortuous colon. Successful completion of the procedure was aided by applying abdominal pressure and placing pt in supine position once in transverse & ascending colon. The patient tolerated the procedure well. Estimated Blood Loss: Estimated blood loss: none. Findings: Normal mucosa was found throughout majority of colon. Possible melanosis in sigmoid. Many medium-mouthed and small-mouthed diverticula were found in the sigmoid colon and descending colon. Some low grade narrowing and angulation noted in portions of sigmoid colon. Non-bleeding external and internal hemorrhoids were found during retroflexion and during digital exam. The hemorrhoids were large. Impression: - Normal mucosa in the entire examined colon. - Diverticulosis in the sigmoid colon and in the descending colon. - Non-bleeding external and internal hemorrhoids. - No specimens collected. Recommendation: - Repeat colonoscopy is not recommended due to current age (66 years or older) for screening purposes. - See discharge instructions for advise regarding gassiness and bloating. - Healthy and high fiber diet for diverticulosis. Avoid tobacco and NSAID use. Stay well hydrated. - If you start having more bleeding or symptoms from hemorrhoids, contact Dr. Lopez's office again. Emma Goetz MD 04/05/2024 10:15:25 AM This report has been signed electronically. Number of Addenda: 0 [id number] ; [place] [address] Emma Goetz MD GI PROCEDURE ORDERABLES Final Result * XR DEXA BONE DENSITY AXIAL 1 OR MORE SITES (02/21/2024 1:50 PM CDT) Anatomical Region Laterality Modality Digital Radiogra phy 02/21/2024 2:58 PM CDT Impressions 02/21/2024 3:05 PM CDT IMPRESSION: Osteoporosis. Lumbar Spine: T-score: -1.6 Left Femoral Neck: T-score: -2.4 Left Total Femur: T-score: -1.4 Right Femoral Neck: T-score: -2.5 Right Total Femur: T-score: -1.3 Left 33% Radius: T-Score: -2.2 Statistical CHANGE: Significant decrease of 7.7 % in Left femoral neck BMD since 2019. FRAX FRACTURE RISK ASSESSMENT: (Only valid Between 40-89 Years Of Age) Risk factors: None. 10-Year probability of fracture Major osteoporotic fracture: 17.1 % Defined as fracture of the spine, hip or shoulder. Hip fracture: 5.5 % Comparison population: [place], Race: White This is a summary page. Please refer to the complete detailed report found in: Imaging Section of the [facility] EMR. Definitions: Normal: T-score above -1.0 Osteopenia T-score less than -1.0 and above -2.5 Osteoporosis: T-score <= -2.5 Note: Clinical Osteoporosis may be based on other factors besides DXA calculated BMD. OTher factors include and are not limited to fragility fractures, subclinical compression fractures,osteopenia and elevated FRAX Scores. A major osteoporotic fracture is defined as a fracture of the spine, forearm, hip or shoulder. Follow-up Recommendations: Patients without high risk factors for osteoporosis T-score -1.0 to -1.5 - Consider repeat BMD in 5-10 years T-score -1.5 to - 2.0 - Consider repeat BMD in 3-5 years T-score -2.0 to - 2.5 - Consider repeat BMD every 2 years Patients on treatment for osteoporosis 1-2 years after initiation of treatment and every 2 years [address] Eddy Dexter MD DICTATION LOCATION: 02/21/2024 3:05 PM CDT EXAMINATION: BONE DENSITY STUDY (DXA) DATE: 02/21/2024 1:50 PM HISTORY: 73 years Female. Postmenopausal. Osteopenia. PROCEDURE: Planar images of the lumbar spine, hip(s) and forearm(s). [employer] DEXA scanner for bone mineral density determination (BMD). Prior bone density: 10/29/2019 FINDINGS: Lumbar Spine (L1-L3): T-score: -1.6 0.980 g/sq cm Prior: 0.952 g/sq cm Left Femoral Neck: T-score: -2.4 0.707 g/sq cm Prior: 0.766 g/sq cm Left Total Femur: T-score: -1.4 Right Femoral Neck: T-score: -2.5 0.690 g/sq cm Prior: 0.724 g/sq cm Right Total Femur: T-score: -1.3 Left 33% Radius: T-Score: -2.2 0.682 g/sq cm TECHNICAL ISSUES: L4 excluded because of degenerative changes. Procedure Note Eddy Dexter MD - 02/21/2024 EXAMINATION: BONE DENSITY STUDY (DXA) DATE: 02/21/2024 1:50 PM HISTORY: 73 years Female. Postmenopausal. Osteopenia. PROCEDURE: Planar images of the lumbar spine, hip(s) and forearm(s). [employer] DEXA scanner for bone mineral density determination (BMD). Prior bone density: 10/29/2019 FINDINGS: Lumbar Spine (L1-L3): T-score: -1.6 0.980 g/sq cm Prior: 0.952 g/sq cm Left Femoral Neck: T-score: -2.4 0.707 g/sq cm Prior: 0.766 g/sq cm Left Total Femur: T-score: -1.4 Right Femoral Neck: T-score: -2.5 0.690 g/sq cm Prior: 0.724 g/sq cm Right Total Femur: T-score: -1.3 Left 33% Radius: T-Score: -2.2 0.682 g/sq cm TECHNICAL ISSUES: L4 excluded because of degenerative changes. IMPRESSION: Osteoporosis. Lumbar Spine: T-score: -1.6 Left Femoral Neck: T-score: -2.4 Left Total Femur: T-score: -1.4 Right Femoral Neck: T-score: -2.5 Right Total Femur: T-score: -1.3 Left 33% Radius: T-Score: -2.2 Statistical CHANGE: Significant decrease of 7.7 % in Left femoral neck BMD since 2020. FRAX FRACTURE RISK ASSESSMENT: (Only valid Between 40-89 Years Of Age) Risk factors: None. 10-Year probability of fracture Major osteoporotic fracture: 17.1 % Defined as fracture of the spine, hip or shoulder. Hip fracture: 5.5 % Comparison population: [place], Race: White This is a summary page. Please refer to the complete detailed report found in: Imaging Section of the [facility] EMR. Definitions: Normal: T-score above -1.0 Osteopenia T-score less than -1.0 and above -2.5 Osteoporosis: T-score <= -2.5 Note: Clinical Osteoporosis may be based on other factors besides DXA calculated BMD. OTher factors include and are not limited to fragility fractures, subclinical compression fractures,osteopenia and elevated FRAX Scores. A major osteoporotic fracture is defined as a fracture of the spine, forearm, hip or shoulder. Follow-up Recommendations: Patients without high risk factors for osteoporosis T-score -1.0 to -1.5 - Consider repeat BMD in 5-10 years T-score -1.5 to - 2.0 - Consider repeat BMD in 3-5 years T-score -2.0 to - 2.5 - Consider repeat BMD every 2 years Patients on treatment for osteoporosis 1-2 years after initiation of treatment and every 2 years thereafter D[address] by Dr. Eddy Dexter MD DICTATION LOCATION: 1 us Matthew Guerrero MD DIAGNOSTIC IMAGING ORDERABLE S Final Result from Last 3 Months or Most Recently Relevant to Health Maintenance Insurance MEDICARE PART A AND B [facility] Advance Directives For more information, please contact: [phone] * Full Code (Latest Code Status on File) Date Activated Date Inactivated Comments 05/25/2024 1:44 AM 05/25/2024 6:25 PM * Full Code Date Activated Date Inactivated Comments 04/05/2024 9:05 AM 04/05/2024 1:11 PM * Full Code Date Activated Date Inactivated Comments 04/28/2020 1:23 PM 04/28/2020 5:37 PM * Full Code Date Activated Date Inactivated Comments 12/05/2019 10:52 AM 12/05/2019 3:25 PM 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
[2024-10-01 13:25] LABS: Basophils Absolute Auto 0.1 K/mm3 (0.0-0.1); Eosinophils Absolute Auto 0.3 K/mm3 (0-0.3); Eosinophils Percent Auto 2.8 % (0-4.4); Hematocrit 44.4 % (37.0-47.0); Hemoglobin 14.2 g/dL (12.0-15.0); Immature Granulocyte Absolute 0.01 K/mm3 (0.00-0.031); Immature Granulocyte Percent A 0.1 % (0-0.5); Lymphocytes Absolute Auto 2.78 K/mm3 (0.9-3.2); Lymphocytes Percent Auto 30.4 % (18.3-44.2); Mean Corpuscular Hemoglobin 29.2 pg (26-34); Mean Corpuscular Volume 91.2 fl (80-100); Mean Platelet Volume 11.9 fl (7.4-10.4); Monocytes Absolute Auto 0.7 K/mm3 (0.1-0.6); Monocytes Percent Auto 7.3 % (2.6-8.5); Neutrophils Absolute Auto 5.3 K/mm3 (1.3-6.7); Neutrophils Percent Auto 58.4 % (45.5-73.1); Platelet Count Result 217 k/mm3 (150-375); Red Blood Count 4.87 M/mm3 (4.2-5.4); Red Cell Distribution Width 12.9 % (11.5-14.5); White Blood Count 9.2 K/mm3 (4.5-10.0)
[2024-10-01 13:47] LABS: Alanine Aminotransferase 19 U/L (6-35); Albumin Level 4.5 g/dL (3.5-5.1); Alkaline Phosphatase 62 U/L (38-126); Anion Gap 6 mmol/L (4-12); Aspartate Amino Transferase 56 U/L (14-36); Bilirubin,Total 0.5 mg/dL (0.2-1.3); Blood Urea Nitrogen 24 mg/dL (7-17); Calcium 9.6 mg/dL (8.4-10.2); Carbon Dioxide 32 mmol/L (22-30); Chloride 101 mmol/L (98-107); Estimated Glomerular Filt Rate > 60; Glucose 82 mg/dL (65-110); Potassium 4.5 mmol/L (3.4-5.0); Sodium 139 mmol/L (137-145); Total Protein 7.4 g/dL (6.3-8.2)
== END 2024-10-01 09:53 | disposition home or self-care (01) ==
LOC: ANHGOSHLAB 09:54
PROVIDERS: PCP Internal Medicine; Visit Provider Internal Medicine
DX: I10 Essential (primary) hypertension (principal); I70.0 Atherosclerosis of aorta; E78.5 Hyperlipidemia, unspecified
CPT/HCPCS: 36415; 80053; 82172; 85025

== ENCOUNTER 2024-11-06 14:36 | Outpatient (CLI) | payer MEDICARE, SELFPAY ==
--- OUTSIDE RECORDS SUMMARY | 2024-11-06 14:40 | XMS_ITS | Clinical Summary ---
Author Organization [facility] Address [address] [place] [address] Care Team Providers Care Terminal Supervisor Name Role Phone Referral, Self Unavailable Unavailable Jean Paul Wang DO Primary Care Provider [phone] Allergies Active Allergy Reactions Criticality Noted Date [...] (eight) hours as needed for anxiety 5 9 Active valACYclovir (VALTREX) 500 mg tabletIndications: Cold sores Take 1 tablet (500 mg total) by mouth 2 (two) times a day as needed 9 Active metoprolol XL (TOPROL-XL) 200 mg extended release tabletIndications: hypertension Take 1 tablet (200 mg total) by mouth nightly Active diclofenac sodium (VOLTAREN) 1 % gel Apply 2 g topically 4 (four) times a day as needed Active collagen, hydrolysate, bovine, (collagen, hydr, bovine,, bulk,) 100 % powderIndications: Skin, hair , nail support. every morning Mixes in a drink Active pdkcdcho-oscw-opm- folic acid (One Daily Complete) 18-0.4 mg tablet Act jose acetaminophen (TYLENOL) 325 mg tablet Take 1 tablet (325 mg total) by mouth every 4 (four) hours as needed Active krill oil 500 mg capsule Take by mouth Active hbsaeohr-ubhw-iyhz n-gktr-trlpj 100 mg-150 mg- 50 mg-150 mg capsule Take by mouth Active ondansetron ODT (ZOFRAN-ODT) 4 mg disintegrating tablet Take 1 tablet (4 mg total) by mouth every 8 (eight) hours as needed for nausea or vomiting 20 tablet 4 Active neomycin-polymyxin -dexAMETHasone (MAXITROL) 3.5mg/mL-10,000 unit/mL-0.1 % ophthalmic suspension 4 Active traMADoL (ULTRAM) 50 mg tablet Take 1 tablet (50 mg total) by mouth 2 (two) times a day as needed for pain 5 Active methocarbamoL (ROBAXIN) 500 mg tablet TAKE 1 TABLET BY MOUTH TWICE DAILY NEEDED FOR MUSCLE PAIN 5 Active amitriptyline (ELAVIL) 25 mg tablet Take 1 tablet (25 mg total) by mouth nightly at bedtime 5 Active atorvastatin (LIPITOR) 40 mg tablet Take 1 tablet (40 mg total) by mouth daily 5 Active polycarbophil (FIBERCON) 625 mg tablet Take 1 tablet (625 mg total) by mouth daily Active estradioL (ESTRACE) 0.01 % (0.1 mg/gram) vaginal cream Insert 1 g into the vagina 2 (two) times a week 5 Active ibuprofen (ADVIL,MOTRIN) 400 mg tablet Take 1 tablet (400 mg total) by mouth every 6 (six) hours as needed 5 Active Active Problems Problem Noted Date Diagnosed Date Anxiety state 05/25/2024 HTN (hypertension), benign 05/25/2024 Weakness of right upper extremity 05/25/2024 Memory loss 02/13/2024 Arthritis of right acromioclavicular joint 08/3008/30/2022 Neck pain 08/30/2022 08/30/2022 Tendinitis of right rotator cuff 08/30/2022 08/30/2022 Nasal valve stenosis 07/27/2021 Overview (07/27/2021): Added automatically from request for surgery [id number] Closed fracture of nasal bones 07/27/2021 Overview (07/27/2021): Added automatically from request for surgery [id number] Thyroid nodule 07/13/2021 Closed fracture of proximal [...] Encounters Date Type Department Care Team Description 10/15/2024 9:00 AM CDT Office Visit [facility] Otolaryngology [address] [facility], [address] [place] [address] Ailyn Brock, LUDMILA Chronic mastoiditis of left side (Primary Dx); Otomycosis of left ear 10/02/2024 Telephone [facility] Otolaryngology [address] [place] [address] Angela Winchester, 09/20/2024 Orders Only [facility], Provider 09/13/2024 Orders Only [facility], Provider 09/13/2024 Results Follow-Up [facility] [address] [place] [address] Advanced Medicine 6th [place] [address] [place] [phone] Adilia Abad MD Neuro MR Outside Consult 09/11/2024 5:27 PM CDT - 09/11/2024 11:59 PM CDT Hospital Encounter [facility] [address] [place] [address] Diagnosis unknown Discharge Disposition: Discharge to home or self care 09/05/2024 Documentation [facility] [facility] First Floor [address] [place] [phone] SmithMarkjanet TYREEIsabel 09/04/2024 1:00 PM CDT Office Visit [address] Medicine 6th [place] [address] [place] [phone] Adilia Abad MD Bipolar affective disorder, current episode hypomanic (HCC) (Primary Dx); Memory loss from Last 3 Months Immunizations Immunization Administration Dates Next Due Influenza, Trivalent, Adjuva nted, Intramuscular 02/08/2019 Influenza, Trivalent, High D ose, Split, Preservative Free, Intramuscular 01/12/2018,04/11/2017,02/07/2016,03/04 Influenza, Trivalent, IM (MDV) 05/03/2012 Pneumococcal Conjugate PCV 13 02/07/2016 Tdap 04/11/2017 ZOSTER LIVE 07/12/2014 ZOSTER Recombinant 03/08/2019 Surgical History Surgery Date Site/Laterality Comments [place] UNLISTED PROCEDURE INNER EAR 04/30/1994 Left Inner Ear Surgery - (Added by Conv) TOTAL ABDOMINAL HYSTERECTOMY W/ BILATERAL SALPINGOOPHORECTOMY 11/09/1991 Hysterectomy Total, With Removal Of One Tubes And One Ovary- (Added by TW Conv) CHOLECYSTECTOMY 04/24/2008 TONSILLECTOMY/ADENOIDECTOMY as a child WISDOM TOOTH EXTRACTION as a young adult IMPLANTATION BONE ANCHORED HEARING AID BLADDER SUSPENSION COLONOSCOPY 12/05/2019 COLONOSCOPY performed by Evon Lopez MD at [facility] GI LAB HEMORRHOID SURGERY KNEE ARTHROSCOPY W/ MENISCECTOMY 04/28/2020 Right RIGHT KNEE ARTHROSCOPY, PARTIAL MEDIAL MENISCECTOMY, CHONDROPLASTY performed by Tyree Sawant MD at [facility] CC OR GLAUCOMA SURGERY CYST REMOVAL 04/25/2020 - 04/24/2021 Left Incision and Drainage Cyst (Left breast at nipple) CATARACT EXTRACTION W/ INTRAOCULAR LENS IMPLANT Right VARICOSE VEIN SURGERY 05/26/2021 - 06/22/2021 Medical History Medical History Date Comments Personal history of other sp ecified conditions History of headache - (Added by TW Conv) Personal history of other di seases of the circulatory system History of hypertension - (A dded by Conv) PONV (postoperative nausea and vomiting) Family [...] on file 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 4. Multilevel kpmh-gh-wvdtfatz degenerative change of cervical spine described above. The findings, conclusions and recommendations within this report do not replace the initial findings, conclusions and recommendations made at the facility where the study was performed based upon the imaging and clinical condition at that time. Comparison with the prior report and clinical history is necessary. The provided images may or may not represent the [place] source data set and thus may contain [...] better evaluated with volumetric MRI. 4. Multilevel wndg-qc-jszqktkc degenerative change of cervical spine described above. The findings, conclusions and recommendations within this report do not replace the initial findings, conclusions and recommendations made at the facility where the study was performed based upon the imaging and clinical condition at that time. Comparison with the prior report and clinical history is necessary. The provided images may or may not represent the [place] source data set and thus may contain changes that may lower the accuracy of this second-opinion interpretation. Electronically signed by: Juancarlos Huang MD, PHD us Adilia Abad MD IM MRI PROCEDURES Final Result from Last 3 Months Insurance MEDICARE [facility] MEDICARE SUPPLEMENT INSURANCE [employer] MEDICARE SUPPLEMENT INSURANCE [employer] MEDICARE SUPPLEMENT INSURANCE Care Teams Terminal Supervisor Relationship Specialty Start Date End Date Jean Paul Wang DO PCP - General Internal Medicine 03/01/24 Referral, Self Referring Physician Otolaryngology 01/10/19
--- OUTSIDE RECORDS SUMMARY | 2024-11-06 14:40 | XMS_ITS | Data Portability ---
Author Organization [facility],, [address] [place] [address] Office Address [address] [facility] [address] [place] [address] Care Team Providers Care Bread Oven Operator Name Role Phone RAZ MARTIN Primary Care Provider EVITA JAMISON Referring Provider [phone] Assessment No assessment recorded. Plan of Treatment Reminders Order Date Submit Date Provider Last Modified By Organization Details Last Modified Time Details Appointments None record ed. Lab None record ed. Referral None record ed. Procedures None record ed. Surgeries None record ed. Imaging None record ed. Medication Orders None record ed. Patient TargetsNo targets recorded. Patient InstructionsNo instructions recorded. Reason for Referral None Reported. Results Created Date Observation Date Name Description Value Unit Range Abnormal Flag Note LastModifiedBy Organization Detail LastModifiedTime 06/02/19 22 , doppl er, arter ial No observ ation record ed. [email or web address] Not Available 12/2021 09:09:27 06/02/19 22 , doppl er, arter ial No observ ation record ed. [email or web address] Not Available 12/2021 08:59:08 Result Notes None recorded. Problems Name Problem SNOMED Code Status Onset Date Resolution Date Notes Provider Name and Address Organization Details Recorded Time Pain in right foot 0005425788313 07 Active 2020 Amee Curran, GABINO [address] [facility], [place], [address], [facility], 16:28:52 Closed fracture of proximal phalanx of lesser toe of right foot 7650614523706 9105 Active 2020 Amee Curran, GABINO [address] [facility],[address], [place], [address], [facility], 16:28:53 Effusion of interphalan geal joint of toe 615905547 Active 2020 Amee Curran, GABINO [address] [facility], [place], [address], [facility], 16:28:53 Problem Notes None recorded. Procedures Surgical History Date Name Laterality Status Provider Name and Address Organization Details Recorded Time 01/16/20 21 Foot X-ray 3 Views completed Amee Curran, GABINO [address] [facility],[address], [place], [address], [facility], 01/20/2021 16:15:07 Appendectomy completed [facility], 01/15/2021 16:32:07 Cataract Surgery completed [facility], 01/15/2021 16:32:13 procedure on gallbladder completed [facility], 01/15/2021 16:32:20 tonsillectomy completed [facility], 01/15/2021 16:32:26 mastoidotomy completed [facility], 01/15/2021 16:32:35 Imaging Results None recorded. Procedure Notes None recorded. Medical Equipment None Reported. Medications Name Sig Start Date Stop Date Status Note LastModified by Organization Details LastModified Time metoprolol succinate ER 200 mg tablet,exten ded release 24 hr TAKE 1 TABLET BY MOUTH EVERY DAY active Not Available Not Available No t Available valacyclovir 500 mg tablet TAKE 1 TABLET BY MOUTH TWICE DAILY active Not Available Not Available No t Available tramadol 50 mg tablet TAKE 1 TABLET BY MOUTH EVERY 4 HOURS NEEDED FOR PAIN active Not Available Not Available No t Available amitriptylin e 50 mg tablet TAKE 1 TABLET BY MOUTH EVERY DAY active Not Available Not Available No t Available ofloxacin 0.3 % ear drops ADMINISTER 5 DROPS INTO THE LEFT EAR EVERY OTHER DAY active Not Available Not Available No t Available prednisolone acetate 1 % eye drops,suspen levar APPLY INSTILL ONE DROP THREE TIMES DAILY IN RIGHT EYE active Not Available Not Available No t Available lorazepam 0.5 mg tablet TAKE 1 TABLET BY MOUTH EVERY 8 HOURS NEEDED ANXIETY active Not Available Not Available No t Available promethazine 25 mg tablet TAKE 1 TABLET BY MOUTH EVERY 8 HOURS NEEDED FOR NAUSEA AND VOMITING active Not Available Not Available No t Available polymyxin B sulfate 10,000 unit-trimeth oprim 1 mg/mL eye drops LOCATION RIGHT EYE. INSTALL DROP IN RIGHT EYE 3X DAILY AND START 2 DAYS PRIOR TO SURGERY active Not Available Not Available N ot Available diclofenac 50 mg-misoprost ol 200 mcg tablet,immed .and delayed release TAKE 1 TABLET BY MOUTH TWICE A DAY active Not Available Not Available No t Available dextroamphet amine-amphet amine 5 mg tablet TAKE 1 TABLET BY MOUTH TWICE A DAY AT LEAST 4 6 HOURS APART active Not Available Not Available Not Available mometasone 0.1 % topical cream APPLY TO BAHA SITE TWICE A DAY NEEDED active Not Available Not Available No t Available Vitals Date Recorded Body height Body mass index (BMI) Body weight Heart rate Oxygen saturation Oxygen saturation in Arterial blood by Pulse oximetry Body temperature Systolic And Diastolic Provider Name and Address Organization Details Last Updated DateTime 162.56 cm 25.7 kg/m2 09444.8 6 g 65 /min 98 % 98 % 98.1 [degF] 153/78 mm[Hg] Mee Fry [facility], 16:30:17 Social History Question Answer Notes LastModified by [facility] Details LastModified Time Tobacco Smoking Status Never Smoker Mee Fry [facility], 01/15/2021 16:31:59 What Was The Date Of Your Most Recent Tobacco Screening? 01/15/2021 [email or web address] Information not available 01/15/2021 Sex: Unknown Functional Status Question Answer Note LastModified by [facility] Details LastModified Time Do you use any illicit or recreational drugs? No [email or web address] Information not available 01/15/2021 Do you or have you ever used any other forms of tobacco or nicotine? No [email or web address] Information not available 01/15/2021 What is your level of alcohol consumption? Occasional [email or web address] Information not available 01/15/2021 Mental Status None recorded. Family History Relationship Description Onset Age of this Age Resolved Age Notes LastModified by Organization Details LastModified Time Unspecified Relation Arthritis [email or web address] Not available 16:31:20 Unspecified Relation Hypertensive disorder [email or web address] Not available 12/25 16:31:30 Unspecified Relation Heart disease [email or web address] Not available 12/25 16:31:39 Notes:Cancer Medical History Condition Response Coronary Artery Disease N Gout N Artificial Joints N Thyroid Problems N Lung Disease N Blood Clots N Pacemaker N Anemia N Edema N Back Pain Y Deep Vein Thrombosis N Varicose Veins N Diabetes N Bleeding Disorder N Arthritis N Seizures/Epilepsy N AIDS/HIV N Cancer N Stroke N Asthma N Leg or Foot Ulcers N Raynaud's Disease N Peripheral Vascular Disease N Hepatitis N Liver Disease N Heart Disease N Rheumatoid Arthritis N Pulmonary Embolism N Fibromyalgia N Foot Deformity N Hypertension N Osteoporosis N Kidney Disease N Gynecological HistoryNo gynecological history recorded. Obstetrics History GPAL:G 0 P 0 0 0 0 Past Encounters Encounter ID Performer Location Encounter Start Date Encounter Closed Date Diagnosis/Indication Diagnosis SNOMED-CT Code Diagnosis ICD10 Code Diagnosis Note [id number] Amee Curran, GABINO [address],[facility] [address] [place] [phone] 01/15/2021 15:28:40 01/15/2021 16:39:46 Pain in right foot 1449218276 61318 M79.671 The conditions , etiologies , options for care, treatment plan, and prognosis were discussed with the patient. Both conservati ve and surgical options for care were reviewed. The patient voiced understand ing of the condition, home care, and expected healing, and was happy with this treatment plan. They are to return to the office in 6 - 8 weeks if symptoms do not improve, otherwise on an as needed basis. Closed fra cture of proximal phalanx of lesser toe of right foot [id number] S92.514A Reviewed the fracture in detail with her today. Reviewed the phases of healing: Phase 1 includes reducing swelling and rest to protect the injured tissues. Phase 2 includes restoring range of motion and flexibilit y. Phase 3 includes gradually returning to activities that will not impair healing or promote further injury. This phase will include gradual return to normal activity for patient. Recommende d that she rest, ice, use compressio n and elevate extremity at home as needed. Ice can be applied for 20 minutes at a time, 3-4 times a day. Ice can be using in conjunctio n with compressio n to keep swelling down. A handout demonstrat ing the icing and home physical therapy stretching techniques was given to the patient at this visit. Ice can be applied for 20 minutes at a time, 3-4 times a day. Ice can be using in conjunctio n with compressio n to keep swelling down. Spica toe taping applied and demonstrat ed. She is to continue using the taping for 3 weeks. Wear stiff soled shoes at all times. Answered all of patient's questions. Reviewed that swelling is normal at this time and may persist months until the foot is completely healed but will continue to decrease as she heals. Effusion o f interphalangeal joint of toe [id number] M25.474 Health Concerns Section Related Observation LastModified by Organization Detai ls LastModified Time None Recorded Concern Status LastModified by Organization Details LastModified Time None Recorded Advance Directives Directive None Recorded Payers Insurance Date Sequence Insurance Name Policy Number Policy Abebe Covered Member ID Abebe Member ID Guarantor Name 01/15/2021 2 [facility] (MEDICARE SUPPLEMENT) Dunbar A Whipple Cormack [id number] Lisandra Whipple-Corm ack 01/15/2021 1 [place] Dun[place] A Whipple Cormack [id number] Lisandra Whipple-Corm ack Notes Date Note Type Note Provider Name and Address Organization Details Recorded Time 01/15/2021 text/html Patient presents the office with a chief complaint of pain in the right 5th toe that has been present a few days; states that the pain occurred as a result of stubbing her toe at home and the pain is aching and throbbing in nature. Relates that the pain is worsening and that pressure and shoes increases the pain; they can bear weight. Previous treatments include rest, ice, massage, elevation and jwvk-eul-lwboyfw pain medications. Outside reports reviewed: Office notes and historical medical records Amee Curran, GABINO [address] [facility], [place], [address], [facility], 01/20/2021 16:29:45 OBGyn Episode No OBEpisode recorded.
--- OUTSIDE RECORDS SUMMARY | 2024-11-06 14:40 | XMS_ITS | Clinical Summary ---
Author Organization [facility] Address [address] [place] [address] Phone Care Team Providers Care Casting Repairer Name Role Phone Jean Paul Wang DO [...] mg Capsule Take by mouth. Acti ve mscxegz-lolp-fv dyo-ulev-fxleoi 100 mg-150 mg- 50 mg-150 mg Capsule [...] Take 50 mg by mouth. 5 Active Active Problems Problem Noted Date [...] Encounters Date Type Department Care Team Description 11/05/2024 Telephone [facility] Neurosurgery - [facility] [place] [address] [place] [address] Provider, Abstract new pt ppwk 10/16/2024 External Device Data ST[place] ABSTRACTION Provider, Abstract 09/25/2024 External Device Data [place] ABSTRACTION Provider, Abstract 09/25/2024 External Device Data [place] ABSTRACTION Provider, Abstract 09/25/2024 Telephone [facility] Neurosurgery - [facility] [place] [address] [place] [address] Srinivas Meadows MD needs appointment 09/24/2024 3:10 PM CDT Ancillary Procedure [facility] Orthopedic Surgery at the [facility] Medicine [address] [place] [address] Della Stephenson PA-C Chronic left shoulder pain 09/24/2024 3:05 PM CDT Ancillary Procedure [facility] Orthopedic Surgery at the [facility] Medicine [address] [place] [address] Della Stephenson PA-C Chronic left shoulder pain 09/24/2024 3:00 PM CDT Office Visit [facility] Orthopedic Surgery at the [facility] Medicine [address] [place] [address] Della Stephenson PA-C Chronic left shoulder pain [...] Sex Assigned at Female 03/07/2024 1:19 PM CROWN ASSEMBLY MACHINE OPERATOR Legal Sex Female 5:35 AM CROWN ASSEMBLY MACHINE OPERATOR Gender Identity Female 03/07/2024 1:25 PM CROWN ASSEMBLY MACHINE OPERATOR Sexual Orientation Asexual 03/07/2024 1: 19 PM CROWN ASSEMBLY MACHINE OPERATOR Occupation Industry Job Start Date Job End Date Not on file Not on file Not on file Not on file Last Filed Vital Signs Vital Sign Reading Time Taken Comments Blood Pressure 143/67 05/25/2024 12:00 PM CROWN ASSEMBLY MACHINE OPERATOR Pulse 80 06/20/2024 12:36 PM CROWN ASSEMBLY MACHINE OPERATOR Temperature 36.8 C (98.3 F) 05/25/2024 12:00 PM CROWN ASSEMBLY MACHINE OPERATOR Respiratory Rate 18 05/25/2024 12:00 PM CROWN ASSEMBLY MACHINE OPERATOR Oxygen Saturation 98% 06/20/2024 12:36 PM CROWN ASSEMBLY MACHINE OPERATOR Inhaled Oxygen Concentration - - Weight 69.9 kg (154 lb 2 oz) 06/20/2024 12:36 PM CROWN ASSEMBLY MACHINE OPERATOR Height 162.6 cm (5' 4) 06/20/2024 12:36 PM CROWN ASSEMBLY MACHINE OPERATOR Body Mass Index 26.46 06/20/2024 12:36 PM CROWN ASSEMBLY MACHINE OPERATOR Plan of Treatment Upcoming Encounters Date Type Department Care Team (Late st Contact Info) Description 11/07/2024 9:30 AM CDT Office Visit [facility] Orthopedic Surgery at the [facility] Medicine [address] [place] [address] Della Stephenson PA-C [address] [facility] [address] [place] [address] 11/13/2024 11:30 AM CDT Office Visit [facility] Neurosurgery - Medical [place] [address] [place] [address] Srinivas Meadows MD [address] [facility] [address] [address] -x0 (Work) 06/13/2025 8:00 AM CROWN ASSEMBLY MACHINE OPERATOR [facility] [address] [place] [address] Ar Alaniz, PhD Dept of Neuropsychology [address] [place] [address] Health Maintenance Due Date Last Done Comments PNEUMOCOCCAL VACCINE 50+ YEA RS (2 of 2 - PPSV23) 02/06/2017 02/07/2016 ZOSTER VACCINE (3 of 3) 05/03/2019 03/08/2019, 07/12 RSV VACCINE (60+ or ) (1 - 1-dose 75+ series) 2023 INFLUENZA VACCINE (#1) 2024 9, 01/12/2018, 04/11/2017, Additional history exists OSTEOPOROSIS SCREENING 02/20/2026 4, 10/29/2019, 08/01/2017, Additional history exists DTAP/TDAP/TD VACCINES (2 - T d or Tdap) 04/11/2027 04/11/2017 COLORECTAL SCREENING Discontinued 04/05/2024, 04/05/2024, 12/05/2019, Additional history exists Colorectal Cancer Screening Discontinued FIT-DNA Q 3 years Discontinued FIT/FOBT Q 1 year Discontinued Flex Sig/CT Colonography Q 5 years Discontinued Medical Devices Implanted Type Area Agricultural Consultant Device Identifier Shelf Expiration Date Model / Serial / Lot Baha Ear Implant Ear Description:MRI conditional for 1.5T only - Normal mode, no KWAME limitations and no coil restrictions -[facility] 05/25/24 Procedures Procedure Name Priority Date/Time Associated Diagnosis Comments XR CERVICAL SPINE 2 OR 3 VIEWS Routine 09/24/2024 3:13 PM CDT Chronic left shoulder pain XR SHOULDER 2+ VW LEFT Routine 09/24/2024 3:09 PM CDT Chronic left shoulder pain COLONOSCOPY REPORT 04/05/2024 10 :15 AM CROWN ASSEMBLY MACHINE OPERATOR XR DEXA BONE DENSITY AXIAL 1 OR MORE SITES Routine 02/21/2024 1:50 PM CDT Menopause from Last 3 Months or Most Recently Relevant to Health Maintenance Results * XR CERVICAL SPINE 2 OR 3 VIEWS (09/24/2024 3:13 PM CDT) Anatomical Region Laterality Modality Spine Computed Radiogr aphy Narrative 10/08/2024 8:15 AM CDT AP, lateral, and open-mouth views of the cervical spine does reveal loss of disc height at C3/4/5/6 us Della Stephenson PA-C DIAGNOSTIC IMAGING ORDERAB LES Final Result * XR SHOULDER 2+ VW LEFT (09/24/2024 3:09 PM CDT) Anatomical Region Laterality Modality Upper Extremity Computed Radiogr aphy Narrative 10/08/2024 8:15 AM CDT 2 views of the left shoulder in addition to 2 views of the left scapula reveal the glenohumeral joint space to be concentrically reduced with no acute fracture or subluxation us Della Stephenson PA-C DIAGNOSTIC IMAGING ORDERAB LES Final Result * COLONOSCOPY REPORT (04/05/2024 10:15 AM CROWN ASSEMBLY MACHINE OPERATOR) Narrative Procedure Note Emma Goetz MD - 04/05/2024 10:15 AM CST [facility] Endoscopy Patient Name: Lisandra Jorge Procedure Date: [...] signed electronically. Number of Addenda: [phone] ; [place] [address] Emma Goetz MD GI PROCEDURE ORDERABLES Final [...] report found in: Imaging Section of the [facility] EMR. Definitions: Normal: T-score above -1.0 [...] of the lumbar spine, hip(s) and forearm(s). Enerplant DEXA scanner for bone mineral density determination [...] of the lumbar spine, hip(s) and forearm(s). Enerplant DEXA scanner for bone mineral density determination [...] report found in: Imaging Section of the [facility] EMR. Definitions: Normal: T-score above -1.0 [...] Dr. Eddy Dexter MD DICTATION LOCATION: 1 Matthew Guerrero MD DIAGNOSTIC IMAGING ORDERABLE S Final Result from Last 3 Months or Most Recently Relevant to Health Maintenance Insurance MEDICARE PART A AND B [facility] SUPP MAURILIO AVENDANO [facility] Advance Directives For more information, please contact: [phone] * Full Code (Latest Code Status on File) Date Activated Date Inactivated Comments 05/25/2024 1:44 AM 05/25/2024 6:25 PM * Full Code Date Activated Date Inactivated Comments 04/05/2024 9:05 AM 04/05/2024 1:11 PM * Full Code Date Activated Date Inactivated Comments 04/28/2020 1:23 PM 04/28/2020 5:37 PM * Full Code Date Activated Date Inactivated Comments 12/05/2019 10:52 AM 12/05/2019 3:25 PM Care Teams Casting Repairer Relationship Specialty Start Date End Date Jean Paul Wang DO [address] [address] PCP - General Internal Medicine 05/02/23
--- OUTSIDE RECORDS SUMMARY | 2024-11-06 14:40 | XMS_ITS | Encounter Summary ---
Author Organization [facility] Address [address] [place] [address] Phone Care Team Providers Care General Repairer Name Role Phone Referral, Self Unavailable Unavailable Jean Paul Wang DO Primary Care Provider [phone]- [phone] Encounter Details Date Type Department Care Team (Late st Contact Info) Description 09/13/2024 Results Follow-Up [facility] [address] [facility] Advanced Medicine 6th [place] [address] [place] [address] Adilia Abad MD [address] [facility] [address] [place] [address] Neuro MR Outside Consult Social History Tobacco [...] on file Legal Sex Female 9:18 PM CIRCULAR SAW FILER Gender Identity Not on file Sexual Orientation Not on file documented as of this encounter Plan of Treatment Not on file documented as of this encounter Visit Diagnoses Not on filedocumented in this encounter Care Teams General Repairer Relationship Specialty Start Date End Date Jean Paul Wang DO PCP - General Internal Medicine 03/01/24 Referral, Self Referring Physician Otolaryngology 01/10/19 documented as of this encounter
--- OUTSIDE RECORDS SUMMARY | 2024-11-06 14:40 | XMS_ITS | Encounter Summary ---
Author Organization [facility] Address [address] [place] [address] Care Team Providers Care Interface Engineer Name Role Phone GracielacarlottaJean Paul DO Primary Care Provider Reason for Visit * Reason Onset Date Comments new pt ppwk 11/05/2024 Encounter Details Date Type Department Care Team (Late st Contact Info) Description 11/05/2024 Telephone [facility] Neurosurgery - [facility] [address] [place] [address] Provider, Abstract NO ADDRESS ON FILE new pt ppwk Social History Tobacco Use Types Packs/Day Years Used Date Smoking Tobacco: Former Cigarettes Q uit: 04/25/1995 Smokeless Tobacco: Never Alcohol Use Standard Drinks/Week Comments Yes 0 [...] Sex Assigned at Female 03/07/2024 1:19 PM HADOOP DEVELOPER Legal Sex Female 5:35 AM HADOOP DEVELOPER Gender Identity Female 03/07/2024 1:25 PM HADOOP DEVELOPER Sexual Orientation Asexual 03/07/2024 1: 19 PM HADOOP DEVELOPER Occupation Industry Job Start Date Job End Date Not on file Not on file Not on file Not on file documented as of this encounter Miscellaneous Notes * Telephone Encounter - Alfonso Lambert - 11/05/2024 12:00 PM CDT Directed pts daughter where to find ppwk in portal. Asked her to complete prachi but no later than deadline being 11/09 by 2pm. documented in this encounter Plan of Treatment Upcoming Encounters Date Type Department Care Team (Late st Contact Info) Description 11/07/2024 9:30 AM CDT Office Visit [facility] Orthopedic Surgery at the [facility] Medicine [address] [facility] [address] [place] [address] Della Stephenson, CAROLC [address] [facility] [address] [place], [place] [id number] 11/13/2024 11:30 AM CDT Office Visit [facility] Neurosurgery - Medical [place] [address] [place] [address] Srinivas Meadows MD [address] [facility] [address] [place], [place] [id number] -x0 (Work) 06/13/2025 8:00 AM HADOOP DEVELOPER [facility]idential [facility] Neuropsychology Services [address] [place] [address] Ar Alaniz, PhD Dept of Neuropsychology [address] [place] [address] documented as of this encounter Visit Diagnoses Not on filedocumented in this encounter Additional Health Concerns Assessment Noted Time PHQ-9 Depression Total Score: 2 05/25/19 25 12:31 AM HADOOP DEVELOPER documented as of this encounter Care Teams Interface Engineer Relationship Specialty Start Date End Date Jean Paul Wang DO [address] [facility] [address] [place] [address] PCP - General Internal Medicine 05/02/23 documented as of this encounter
--- OUTSIDE RECORDS SUMMARY | 2024-11-06 14:40 | XMS_ITS | Referral Summary ---
Author Organization [facility] Address [address] [place] [address] Care Team Providers Care Cooking Teacher Name Role Phone Referral, Self Unavailable Unavailable Jean Paul Wang DO Primary Care Provider [phone]- [phone] Encounters Date Type Department Care Team Description 10/15/2024 9:00 AM CDT Office Visit [facility] Otolaryngology [address] [place] [address] Ailyn Brock, LUDMILA Chronic mastoiditis of left side (Primary Dx); Otomycosis of left ear 10/02/2024 Telephone [facility] Otolaryngology [address] [place] [address] Angela Winchester, 09/20/2024 Orders Only [facility] Sc[facility], Provider 09/13/2024 Orders Only [facility], Provider 09/13/2024 Results Follow-Up [facility] [address] [facility] Advanced Medicine 6th [place] [address] [place] [address] Adilia Abad MD Neuro MR Outside Consult 09/11/2024 5:27 PM CDT - 09/11/2024 11:59 PM CDT Hospital Encounter [facility] Count includes the [facility] [place] [address] Diagnosis unknown Discharge Disposition: Discharge to home or self care 09/05/2024 Documentation [facility] [address] [facility] [address] [place] [address] Sharda Smith RMA 09/04/2024 1:00 PM CDT Office Visit [facility] Diagnostic [place] [address] [facility] 6th [place] [address] [place] [address] Adilia Abad MD Bipolar affective disorder, current episode hypomanic (HCC) (Primary Dx); Memory loss from Last 3 Months Allergies Active Allergy [...] every morning Mixes in a drink Active oysdhpnh-afqe-xbc- folic acid (One Daily Complete) 18-0.4 mg tablet Act jose acetaminophen (TYLENOL) 325 mg tablet Take 1 tablet (325 mg total) by mouth every 4 (four) hours as needed Active krill oil 500 mg capsule Take by mouth Active njdjagbm-jugj-ztwk g-ptbn-bpyij 100 mg-150 mg- 50 mg-150 mg capsule [...] (07/27/2021): Added automatically from request for surgery [id number] Closed fracture of nasal bones 07/27/2021 Overview (07/27/2021): Added automatically from request for surgery [id number] Thyroid nodule 07/13/2021 Closed fracture of proximal phalanx of lesser toe of right foot 01/15/2021 08/30/2022 Effusion of interphalangeal joint of toe 021 08/30/2022 Pain in right foot 01/15/2021 08/30/2022 Prolapsed internal hemorrhoids, grade 3 09/10/19 Disorder of rotator cuff 05/03/2016 Pain in [...] on file Legal Sex Female 9:18 PM CAFETERIA ASSISTANT Gender Identity Not on file Sexual Orientation [...] better evaluated with volumetric MRI. 4. Multilevel qvvy-bv-ohajejzz degenerative change of cervical spine described above. The findings, conclusions and recommendations within this report do not replace the initial findings, conclusions and recommendations made at the facility where the study was performed based upon the imaging and clinical condition at that time. Comparison with the prior report and clinical history is necessary. The provided images may or may not represent the [place] source data set and thus may contain changes that may lower the accuracy of this second-opinion interpretation. Electronically signed by: Juancarlso Huang MD, PHD Narrative 09/12/2024 10:09 AM [...] better evaluated with volumetric MRI. 4. Multilevel hymt-nw-zfueyzkq degenerative change of cervical spine described above. The findings, conclusions and recommendations within this report do not replace the initial findings, conclusions and recommendations made at the facility where the study was performed based upon the imaging and clinical condition at that time. Comparison with the prior report and clinical history is necessary. The provided images may or may not represent the [place] source data set and thus may contain changes that may lower the accuracy of this second-opinion interpretation. Electronically signed by: Juancarlos Huang MD, PHD Adilia Abad MD IMG MRI PROCEDURES Final Result from Last 3 Months Insurance MEDICARE [facility] MEDICARE SUPPLEMENT INSURANCE MEDICARE [facility] MEDICARE SUPPLEMENT INSURANCE MEDICARE [facility] MEDICARE SUPPLEMENT INSURANCE Care Teams Cooking Teacher Relationship Specialty Start Date End Date Jean Paul Wang DO PCP - General Internal Medicine 03/01/24 Referral, Self Referring Physician Otolaryngology 01/10/19
[2024-11-06 18:32] LABS: Alanine Aminotransferase 17 U/L (6-35); Albumin Level 4.3 g/dL (3.5-5.1); Alkaline Phosphatase 54 U/L (38-126); Aspartate Amino Transferase 41 U/L (14-36); Bilirubin,Total 0.4 mg/dL (0.2-1.3); Total Protein 7.1 g/dL (6.3-8.2)
== END 2024-11-06 14:37 | disposition home or self-care (01) ==
LOC: ANHGOSHLAB 14:37
PROVIDERS: PCP Internal Medicine; Visit Provider Internal Medicine
DX: R74.8 Abnormal levels of other serum enzymes (principal)
CPT/HCPCS: 36415; 80076